=== PATIENT | female | born 1940 | race Caucasian/White ===

== ENCOUNTER 2017-05-07 12:21 | Observation (INO) ==
[2017-05-07] MEDS ORDERED: 0.9 % Sodium Chloride 1,000 ML IVC ONE (12:44)
[2017-05-07 13:12] LABS: Hematocrit 45.4 % (35.3-44.9); Hemoglobin 14.9 g/dL (11.5-15.4); Immature Granulocytes % 0.2 % (0-4); Mean Corpuscular HGB Conc 32.8 g/dL (31.6-35.5); Mean Corpuscular Hemoglobin 29.2 pg (28.0-33.3); Mean Corpuscular Volume 88.8 fL (83.0-100.0); Mean Platelet Volume 10.5 fL (9.4-12.4); Monocytes % 6.5 %; Platelet Count 219 K/mcL (140-400); Red Blood Count 5.11 M/mcL (3.82-4.97); Red Cell Distribution Width 12.5 % (11.5-14.5); Segmented Neutrophils % 71.9 %
[2017-05-07 13:13] LABS: Basophils # 0.1 K/mcL (0.0-0.2); Basophils % 0.8 %; Eosinophils # 0.1 K/mcL (0.0-0.6); Eosinophils % 1.6 %; Lymphocytes # 1.7 K/mcL (0.6-4.6); Monocytes # 0.6 K/mcL (0.0-1.3); Neutrophils # 6.3 K/mcL (1.6-8.9)
[2017-05-07 13:18] LABS: INR 1.2; Prothrombin Time 12.5 Seconds (9.4-12.1)
[2017-05-07 13:21] LABS: Activated Partial Thrombo Time 29.5 Seconds (26.0-36.0)
--- NOTE | 2017-05-07 13:25 | Emergency Department Note ---
Disposition Clinical Impression: Closed head injury Qualifiers: Encounter type: initial encounter Qualified Code(s): S09.90XA - Unspecified injury of head, initial encounter Syncope Qualifiers: Syncope type: unspecified Qualified Code(s): R55 - Syncope and collapse Disposition: Admitted As Inpatient Condition: Good Forms: ED Satisfaction Letter Time of Disposition: 14:49 General Adult HPI - General Chief complaint: ED Fall Stated complaint: Fall/ head lac Time Seen by Provider: 05/07/17 12:33 Source: patient Mode of arrival: ambulatory Limitations: no limitations Nursing Notes Reviewed: Yes Vital Signs Reviewed: Yes - History of Present Illness HPI Narrative: Patient presents emergency room the family had a mechanical fall. Patient got up out of bed and was putting her down. She remembers everything up to put in a gown on and then remembers falling sideways hitting does not remember any other events. She should have orthostatic hypotension but usually has prodromal symptoms. Currently denying chest pain shortness of breath headache vision changes nausea vomiting or diarrhea prior to event. Denies any palpitation other symptoms. She is concerned because the head and anesthetic in the emergency room for evaluation. 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 Radiation: non-radiation Pain Scale: 0 Improves with: nothing Worsens with: nothing Associated symptoms: Reports: denies other symptoms Treatments Prior to Arrival: none - Related Data Home Medications Medication Instructions Recorded Confirmed Metoprolol XL (24 HR) Succ [Toprol 25 mg PO QAM 12/25/15 02/01/16 Xl] Omeprazole [PriLOSEC] 20 mg PO QAM 12/25/15 02/01/16 Pregabalin [Lyrica] 100 mg PO BID 12/25/15 02/01/16 Simvastatin [Zocor] 40 mg PO QPM 12/25/15 02/01/16 Venlafaxine [Effexor] 75 mg PO BID 12/25/15 02/01/16 Meclizine [Antivert] 25 mg PO TID PRN 02/01/16 02/01/16 Previous Rx's Medication Instructions Recorded Aspirin 81 mg PO DAILY #30 tab.chew 12/28/15 Ondansetron [Zofran] 8 mg PO Q8HR PRN #30 tablet 12/28/15 Cefuroxime Axetil [Ceftin] 500 mg PO 1-2XD #14 tablet 02/03/16 Allergies Allergy/AdvReac Type Severity Reaction Status Date / Time acetaminophen [From Vicodin] Allergy Nausea Verified 05/07/17 12:25 hydrocodone [From Vicodin] Allergy Nausea Verified 05/07/17 12:25 nitroglycerin Allergy See Verified 05/07/17 12:25 Comments All systems ED: reviewed and negative except as stated. Review of Systems: As Per HPI Constitutional: Denies: fever, chills, weakness Eyes: Denies: eye discharge, vision change ENT ED: Denies: throat pain, congestion Cardiovascular: Reports: syncope. Denies: chest pain, palpitations, dyspnea on exertion, orthopnea, edema Respiratory: Denies: cough, dyspnea, wheezes, sputum production Gastrointestinal: Denies: nausea, vomiting, diarrhea Genitourinary: Denies: urgency, dysuria, frequency Musculoskeletal: Denies: back pain, neck pain Neurological: Denies: headache Past Medical History - Past Medical History Attestation: Yes The following information was validated with the patient. 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 Absent: miosis, mydriasis, periorbital swelling, periorbital tenderness - ENT ENT exam: normal exam, normal oropharynx, mucous membranes moist - Neck Neck exam: Present: normal inspection, full ROM, trachea midline - Chest Chest inspection: Present: normal inspection, symmetric chest wall rise - Respiratory Respiratory exam: Present: normal lung sounds bilaterally - Cardiovascular Cardiovascular exam: Present: regular rate, normal rhythm, normal heart sounds - Abdominal Exam Abdominal exam: Present: soft, Non-Tender, normal bowel sounds. Absent: tenderness, distention, guarding, rebound, rigidity, Cody's sign, Rovsing's sign, tenderness at McBurney's Point - Extremities Exam Extremities exam: Present: normal inspection, full ROM, normal capillary refill. Absent: tenderness - Back Exam Back exam: Present: normal inspection, full ROM. Absent: tenderness, muscle spasm, paraspinal tenderness, vertebral tenderness - Neurological Exam Neurological exam: Present: alert, oriented X3, CN II-XII intact, normal gait - Psychiatric Psychiatric exam: Present: normal affect, normal mood - Skin Skin exam: Present: warm, dry, intact, normal color Course Course Narrative: Patient seen and examined at the time of arrival. See history of present illness. 76-year-old female presents emergency room with what is described as a syncopal event at home. Patient has orthostatic issues and has been seen and worked up and evaluated for this multiple times in the past. Patient's family is concerned because she was born in hitting the right side of her head. Additionally takes an aspirin daily at this time. On my physical exam this is a well-appearing female speaking in full sentences answer questions appropriate showing no acute neurologic deficits or issues. Evaluation of her head she does have what appears to be a 4 cm x 4 cm hematoma to the right lateral aspect of the frontal bone. There is a red linear area in the middle of it where she hit against the shelf on the cabinet. No active signs of laceration or bleeding at this point. No depressed skull fracture noted. No signs of trauma to the facial bones at this point. Patient has no midline tenderness of cervical thoracic or lumbar spine. Chest full range of motion of the neck without any difficulty. Lungs are clear heart is regular abdomen is soft nontender nondistended. Concern is noted for syncopal event because the patient has difficulty with remembering the actual timeframe where she fell. Patient remembers standing up not having any prodromal symptoms that she typically does with her orthostasis and then remembers falling sideways in hitting her head off the shelf. Diaphragm in between that is completely amnestic to her at this point. Vital signs are reviewed and otherwise unremarkable this time. CT imaging of the head CT cervical spine will be completed. Chest x-ray EKG and lab screening for syncopal event will also be recorded resulted. Fluid hydration nausea medication be given as needed. Disposition will most likely admission for syncopal event secondary to the presentation issue. Family and patient will probably accountable this plan. See detailed documentation of my exam. - Reevaluation(s) Reevaluation #1: EKG shows sinus rhythm and no acute signs of ST segment elevation or conduction related abnormality. CT that is negative cervical spine is negative chest x- ray is normal. Labs are all unremarkable. Urinalysis is still pending. Syncopal event will be discussed and reviewed and discuss admission process. Time: 14:02 Reevaluation #2: Patient was discussed with the hospitalist Dr. Merrill. We reviewed the presentation symptoms and concern for syncopal event. Patient will be admitted this time for further evaluation and management. No other concerns or issues. Laboratory workup imaging modalities are unremarkable this point. Patient family informed of the plan and they are comfortable with her disposition at this time. Time: 14:49 Vital Signs Temperature 97.7 F 05/07/17 12:22 Pulse Rate 97 05/07/17 12:22 Respiratory Rate 18 05/07/17 12:22 Blood Pressure 152/95 05/07/17 12:22 O2 Sat by Pulse Oximetry 97 05/07/17 12:22 Temperature 97.7 F 05/07/17 12:22 Pulse Rate 80 05/07/17 13:56 Respiratory Rate 18 05/07/17 13:56 Blood Pressure 135/90 05/07/17 13:56 O2 Sat by Pulse Oximetry 94 05/07/17 13:56 Oxygen Delivery Oxygen Delivery Nasal Cannula Medical Decision Making - MDM Narrative Medical decision making narrative: fAll, syncopal event - Medical Records Medical records reviewed: Yes I reviewed the patient's medical records. - Lab Data Lab results reviewed: Yes I reviewed the patient's lab results. Result diagrams: 05/07/17 13:06 05/07/17 13:06 Lab Results 05/07/17 05/07/17 05/07/17 Range/Units 13:03 13:06 13:06 WBC 8.7 (4.3-11.1) K/mcL RBC 5.11 H (3.82-4.97) M/mcL Hgb 14.9 (11.5-15.4) g/dL Hct 45.4 H (35.3-44.9) % MCV 88.8 (83.0-100.0) fL MCH 29.2 (28.0-33.3) pg MCHC 32.8 (31.6-35.5) g/dL RDW 12.5 (11.5-14.5) % Plt Count 219 (140-400) K/mcL MPV 10.5 (9.4-12.4) fL Immature Gran % 0.2 (0-4) % Seg Neutrophils % 71.9 % Lymphocytes % 19.0 % Monocytes % 6.5 % Eosinophils % 1.6 % Basophils % 0.8 % Neutrophils # 6.3 (1.6-8.9) K/mcL Lymphocytes # 1.7 (0.6-4.6) K/mcL Monocytes # 0.6 (0.0-1.3) K/mcL Eosinophils # 0.1 (0.0-0.6) K/mcL Basophils # 0.1 (0.0-0.2) K/mcL PT 12.5 H (9.4-12.1) Seconds INR 1.2 APTT 29.5 (26.0-36.0) Seconds Sodium (136-145) mEq/L Potassium (3.5-5.1) mEq/L Chloride (98-107) mEq/L Carbon Dioxide (23-29) mEq/L BUN (8-23) mg/dL Creatinine (0.60-1.20) mg/dL Est GFR ( Amer) (> 60) Est GFR (Non-Af Amer) (> 60) BUN/Creatinine Ratio (6-26) Glucose (70-105) mg/dL POC Glucose 110 H (58-89) Calculated Osmolality (280-300) Calcium (8.6-10.3) mg/dL Troponin I (< 0.04) ng/mL Urine Color (Yellow) Urine Clarity (Clear) Urine pH (5.0-8.0) pH Units Ur Specific [place] (1.010-1.025) Urine Protein (Neg-Trace) mg/dL Urine Glucose (UA) (Normal) mg/dL Urine Ketones (Negative) mg/dL Urine Blood (Negative) Urine Nitrite (Negative) Urine Bilirubin (Negative) Urine Urobilinogen (Normal) mg/dL Ur Leukocyte Esterase (Negative) Urine Microscopic RBC (0-3) per hpf Urine Microscopic WBC (0-3) per hpf Ur Squamous Epith Cells (None-Few) per lpf Urine Bacteria (None-Few) per hpf Hyaline Casts (None-Few) per lpf 05/07/17 05/07/17 05/07/17 Range/Units 13:06 13:06 14:11 WBC (4.3-11.1) K/mcL RBC (3.82-4.97) M/mcL Hgb (11.5-15.4) g/dL Hct (35.3-44.9) % MCV (83.0-100.0) fL MCH (28.0-33.3) pg MCHC (31.6-35.5) g/dL RDW (11.5-14.5) % Plt Count (140-400) K/mcL MPV (9.4-12.4) fL Immature Gran % (0-4) % Seg Neutrophils % % Lymphocytes % % Monocytes % % Eosinophils % % Basophils % % Neutrophils # (1.6-8.9) K/mcL Lymphocytes # (0.6-4.6) K/mcL Monocytes # (0.0-1.3) K/mcL Eosinophils # (0.0-0.6) K/mcL Basophils # (0.0-0.2) K/mcL PT (9.4-12.1) Seconds INR APTT (26.0-36.0) Seconds Sodium 136 (136-145) mEq/L Potassium 4.0 (3.5-5.1) mEq/L Chloride 105 (98-107) mEq/L Carbon Dioxide 23 (23-29) mEq/L BUN 20 (8-23) mg/dL Creatinine 0.92 (0.60-1.20) mg/dL Est GFR ( Amer) > 60 (> 60) Est GFR (Non-Af Amer) 59 L (> 60) BUN/Creatinine Ratio 22 (6-26) Glucose 111 H (70-105) mg/dL POC Glucose (58-89) Calculated Osmolality 285 (280-300) Calcium 9.0 (8.6-10.3) mg/dL Troponin I < 0.03 (< 0.04) ng/mL Urine Color Yellow (Yellow) Urine Clarity Cloudy A (Clear) Urine pH 8.0 (5.0-8.0) pH Units Ur Specific [place] 1.019 (1.010-1.025) Urine Protein Negative (Neg-Trace) mg/dL Urine Glucose (UA) Normal (Normal) mg/dL Urine Ketones Negative (Negative) mg/dL Urine Blood Negative (Negative) Urine Nitrite Negative (Negative) Urine Bilirubin Negative (Negative) Urine Urobilinogen Normal (Normal) mg/dL Ur Leukocyte Esterase Small H (Negative) Urine Microscopic RBC 3-5 H (0-3) per hpf Urine Microscopic WBC 5-15 H (0-3) per hpf Ur Squamous Epith Cells Many H (None-Few) per lpf Urine Bacteria None Seen (None-Few) per hpf Hyaline Casts None Seen (None-Few) per lpf - Radiology Data Radiology results reviewed: Yes I reviewed the patient's radiology results. - EKG Data EKG #1 EKG attestation: Yes I reviewed and interpreted this EKG. EKG results narrative: EKG shows sinus rhythm. Ventricular rate of 98. VT interval 180. QRS duration of 77. QTC of 381. Intervals are within normal limits. [place] is normal. No acute signs of WPW, Sandhya syndrome, and no abnormalities. No acute signs of ST segment elevation or myocardial infarction. Slight variation in lead 3 with T-wave inversions patient is denying chest pain
[2017-05-07 13:26] LABS: BUN/Creatinine Ratio 22 (6-26); Blood Urea Nitrogen 20 mg/dL (8-23); Carbon Dioxide 23 mEq/L (23-29); Chloride 105 mEq/L (98-107); Glucose 111 mg/dL (70-105); Osmolality,Calculated 285 (280-300); Sodium 136 mEq/L (136-145); eGFR For African Americans > 60 (> 60); eGFR For Non-African Americans 59 (> 60)
[2017-05-07 14:29] LABS: Bilirubin,Urine Negative (Negative); Blood,Urine Negative (Negative); Clarity,Urine Cloudy (Clear); Color,Urine Yellow (Yellow); Glucose,Urine (UA) Normal (Normal); Ketones,Urine Negative (Negative); Leukocyte Esterase,Urine Small (Negative); Nitrite,Urine Negative (Negative); Protein,Urine Negative (Neg-Trace); Specific Gravity,Urine 1.019 (1.010-1.025); Urobilinogen,Urine Normal (Normal)
[2017-05-07 14:32] LABS: Bacteria,Urine None Seen per hpf (None-Few); Hyaline Casts,Urine None Seen per lpf (None-Few); Squamous Epithelial Cell,Urine Many per lpf (None-Few)
[2017-05-07] MEDS ORDERED: Ondansetron 4 MG/2 ML VIAL IVP PRN (16:02)
[2017-05-07] MEDS ORDERED: Acetaminophen 325 MG TABLET PO PRN (16:02)
[2017-05-07] MEDS ORDERED: Naloxone 0.4 MG/ML INJ IVP PRN (16:02)
--- NOTE | 2017-05-07 16:08 | Event Note ---
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 fall likely due to orthostasis. Will check orthostatics, echo, carotid, MRI. Follow up with cardiology as outpatient for tilt-table test. Questionable UTI with pus cells and trace leuk esterase (vs. contaminant). Will keep on ceftriaxone and get urine culture. Observation. Telemetry monitoring
--- NOTE | 2017-05-07 16:19 | Internal Med History&Physical ---
Date of Encounter: 05/07/17 Time of Encounter: 15:30 Assessment and Plan (1) Orthostatic hypotension Current visit: Yes Status: Acute Acute on chronic orthostatic hypotension. Pt. reports falling this morning when dressing w/positional changes. Reports hx of similar. Pt. placed on Antivert for previous occurrences. States she is unsure if she blacked out. Head injury sustained in fall w/laceration. CT of the head/brain today shows right superficial fronto temporal soft tissue swelling suggestive of contusion and hematoma. MRI of the head/brain ordered. Orthostatic BPs and VS ordered. Bilateral carotid Doppler imaging ordered. Echocardiogram ordered. EKG today shows sinus rhythm with nonspecific T-wave abnormality. Continuous cardiac telemetry. Supplemental O2 w/titration and SpO2 monitoring PRN. Falls/safety precautions. Pt. discussed w/Dr. Merrill who is in agreement w/plan of care. Pt. is high risk for further morbidity based on current fall, hx of orthostatic sx, hx, and risk factors. Observation. (2) Fall Current visit: Yes Status: Acute Acute falls this morning while dressing. Pt. reports positional changes but is unsure if she blacked out. Reports hx of similar sx and occurrences. Placed in Antivert. Falls/safety precautions. Up with assist. Bed rest w/bathroom privileges w/assist only. Stair-step pain medication for pain management. Qualifiers: Encounter type: initial encounter Qualified Code(s): W19.XXXA - Unspecified fall, initial encounter (3) Hx: UTI (urinary tract infection) Current visit: Yes Status: Acute Chronic hx of UTI w/possible UTI currently based on initial U/A. Currently asymptomatic. Previous hx of UTI positive for Klebsiella which was sensitive to ceftriaxone. Reflex micro-and culture ordered. IVPB ceftriaxone 1000 mg daily for infection coverage. Will adjust abx coverage based on culture results. Monitor pt. and VS. (4) GERD (gastroesophageal reflux disease) Current visit: Yes Status: Chronic Hx of chronic GERD. IVP Zofran 4 mg Q8 for N/V. Continue pts. Prilosec. Qualifiers: Esophagitis presence: esophagitis presence not specified Qualified Code(s) : K21.9 - Gastro-esophageal reflux disease without esophagitis (5) HLD (hyperlipidemia) Current visit: Yes Status: Chronic Hx of chronic HLD. Lipid panel in a.m. labs. Continue pts. Zocor. Qualifiers: Hyperlipidemia type: pure hypercholesterolemia Qualified Code(s): E78.00 - Pure hypercholesterolemia, unspecified; E78.0 - Pure hypercholesterolemia (6) HTN (hypertension) Current visit: Yes Status: Chronic Hx of chronic HTN. Monitor pt. and VS. Continue pts. Metoprolol. Qualifiers: Hypertension type: essential hypertension Qualified Code(s): I10 - Essential (primary) hypertension (7) Anxiety Current visit: Yes Status: Chronic Hx of chronic anxiety. Continue pts. Effexor. (8) DVT prophylaxis Current visit: Yes Status: Acute Bilateral SCDs on pts. LEs d/t head injury and hematoma on imaging. Monitor pt. for signs of bleeding. Internal Medicine - H&P: HPI Chief complaint: Fall Admitted From: Emergency Dept Plans for Post Hospital Care: Home History of present illness: Ms. Hernandez is a 76 year old female with medical history of fibromyalgia, GERD, HLD, and HTN presents from the ED with chief complaint of fall sustained this morning. Pt. states she was bent over putting on socks and stood up to put housecoat over her head when she fell, striking her head. Cannot recall if she blacked out. Reports hx of similar sx and occurrences. Reports she is always sweaty and that her PCP recently told her she may have atrial fibrillation. Also states she spends a lot of time in bed d/t myalgias. Pt. denies recent illness, fever, chills, nausea, vomiting, chest pain, shortness of breath, cough , headache, changes in vision, numbness, tingling, abdominal pain, diarrhea, constipation, weakness, fatigue, dizziness, or lightheadedness. Past Med Surg Social Fam HX - Past Medical History Source: patient, old records reviewed, obtained from family Medical history: fibromyalgia, GERD, hyperlipidemia, hypertension Psychiatric history: anxiety - Past Surgical History Surgical History: appendectomy, cholecystectomy, hysterectomy (Total ) - Social History Smoking Status: Never smoker Smokeless Tobacco Status: No Alcohol use: none Drug use: none Current living situation: Home, With Family Activity Level: Independent ambulation Recent Out of Country Travel Within the Last 8 Weeks: No Exposure or Possible Exposure to Illness During Travel: No - Family History Mother Race: Family Member Ethnicity: Non- Living Status: Age at : 61 Cause of : OR Hx Family Cardiac Disorders: Yes (OR) Father Race: Family Member Ethnicity: Non- Living Status: Age at : 78 Cause of : OR Hx Family Cardiac Disorders: Yes (OR, Stroke) Hx Family GI Disorders: Yes (Partial removal of stomach) Brother Race: Family Member Ethnicity: Non- Living Status: Age at : 37 Cause of : Neck cancer Hx Family Cancer: Yes (Neck) Internal Medicine - H&P: Meds Metoprolol XL (24 HR) Succ [Toprol Xl] 25 mg PO QAM 12/25/15 [History] Omeprazole [PriLOSEC] 20 mg PO QAM 12/25/15 [History] Pregabalin [Lyrica] 100 mg PO BID 12/25/15 [History] Simvastatin [Zocor] 40 mg PO QPM 12/25/15 [History] Venlafaxine [Effexor] 75 mg PO BID 12/25/15 [History] Ondansetron [Zofran] 8 mg PO Q8HR PRN #30 tablet 12/28/15 [Rx] Meclizine [Antivert] 25 mg PO TID PRN 02/01/16 [History] LORazepam [Ativan] 0.5 mg PO BID PRN 05/07/17 [History] 3 Allergy/AdvReac Type Severity Reaction Status Date / Time acetaminophen [From Vicodin] Allergy Nausea Verified 05/07/17 12:25 hydrocodone [From Vicodin] Allergy Nausea Verified 05/07/17 12:25 nitroglycerin Allergy See Verified 05/07/17 12:25 Comments All Systems PM: A 10-system review of systems was performed and is negative for pertinent findings except as documented above in the HPI. - Constitutional Constitutional: as per HPI, falls, no chills, no fever(s), no night sweats - EENT Eyes: no change in vision, no discharge, no pain, no photophobia Ears: no ear discharge, no ear pain, no tinnitus Nose, mouth and throat: no dysphagia, no nasal discharge, no neck pain, no sore throat - Breasts Breasts: as per HPI - Cardiovascular Cardiovascular ROS IM: as per HPI, diaphoresis, no chest pain, no dyspnea, no lightheadedness, no palpitations, no syncope - Respiratory Respiratory: no cough, no dyspnea, no wheezing, no excessive phlegm production - Gastrointestinal Gastrointestinal: no abdominal pain, no diarrhea, no hematemesis, no hematochezia, no melena, no nausea, no vomiting - Genitourinary Genitourinary: no change in urinary stream, no dysuria, no flank pain, no hematuria Menstruation: as per HPI, post hysterectomy - Musculoskeletal Musculoskeletal ROS IM: as per HPI, back pain, myalgias, no numbness, no tingling - Integumentary Integumentary IM: no rash, no unusual bruising - Neurological Neurological ROS: no confusion, no convulsions, no focal weakness, no numbness, no tingling, no tremor(s) - Psychiatric Psychiatric: as per HPI - Endocrine Endocrine IM: as per HPI - Hematologic/Lymphatic Hematologic/Lymphatic: no easy bruising - Allergic/Immunologic Allergic/Immunologic: as per HPI - Constitutional Vitals: Temp Pulse Resp BP Pulse Ox 97.7 F 78 13 139/83 94 05/07/17 12:22 05/07/17 14:53 05/07/17 14:53 05/07/17 14:53 05/07/17 14:53 General appearance: Present: cooperative, A&O X 3, pleasant, no acute distress, answers questions appropriately - Head Head exam: Present: normocephalic Additional comments: Patient has laceration on left side of head above christianity where she struck her head this morning. - Eye Eye exam: Present: PERRL, conjuntiva pink, sclera anicteric Pupils: Present: PERRL - ENT ENT exam: Present: normal exam - Neck Neck exam general surgery: Present: normal inspection, supple, trachea midline. Absent: lymphadenopathy - Respiratory Respiratory exam: Present: CTAB. Absent: accessory muscle use, rales, rhonchi, wheezes - Cardiovascular Cardiovascular exam: Present: RRR, +S1, +S2. Absent: diastolic murmur, gallop, rubs, systolic murmur - GI/Abdominal GI/Abdominal exam: Present: normal bowel sounds, soft, no peritoneal signs. Absent: distended, tenderness - Rectal Rectal exam: Present: deferred - Additional comments: exam deferred. - Extremities Exam Extremities exam: Present: warm, radial pulses palpable and symmetrical. Absent : calf tenderness, cyanotic, pedal edema - Back Exam Back exam: Present: normal inspection - Neurological Exam Neurological exam: Present: CN II-XII intact, oriented X3, no focal deficits. Absent: pronater drift, facial droop, speech deficit - Psychiatric Psychiatric exam: Present: normal affect, normal mood - Skin Skin exam: Present: dry, intact Internal Med - H&P Results - Labs CBC & Chem 7: 05/07/17 13:06 05/07/17 13:06 - EKG Data EKG shows normal: sinus rhythm - EKG Data Prior EKG available for review: yes EKG comments: 05/07/17 16:29 EKG dated 05/11/16 shows sinus rhythm. EKG dated 05/07/17 shows sinus rhythm with nonspecific T-wave abnormality. - Diagnostic Studies Chest x-ray Additional comments: Impressions Chest X-Ray 05/07/17 12:44 IMPRESSION: No active cardiopulmonary disease D/ / Timothy Ross MD / Timothy Ross MD Interpreting Provider: Timothy Ross MD CT scan - head Additional comments: Impressions Head CT 05/07/17 12:45 IMPRESSION: No acute intracranial abnormality. Right superficial frontotemporal soft tissue swelling suggestive of contusion and hematoma. D/ / Tulio Willoughby MD / Tulio Willoughby MD Interpreting Provider: Tulio Willoughby MD Other Images Additional comments: Impressions Cervical Spine CT 05/07/17 13:28 IMPRESSION: No acute abnormality of the cervical spine. D/ / Tulio Willoughby MD / Tulio Willoughby MD Interpreting Provider: Tulio Willoughby MD
[2017-05-07] MEDS: cefTRIAXone 1,000 MG in Water for inj. (sterile) 20 ML 10 ML IVPB SCH (16:37)
[2017-05-07] MEDS: Pregabalin 50 MG CAPSULE PO SCH (20:15)
[2017-05-08 04:48] LABS: Basophils # 0.1 K/mcL (0.0-0.2); Basophils % 0.8 %; Eosinophils # 0.2 K/mcL (0.0-0.6); Hematocrit 38.2 % (35.3-44.9); Immature Granulocytes % 0.4 % (0-4); Lymphocytes # 1.7 K/mcL (0.6-4.6); Lymphocytes % 23.3 %; Mean Corpuscular HGB Conc 33.5 g/dL (31.6-35.5); Mean Corpuscular Hemoglobin 29.8 pg (28.0-33.3); Mean Corpuscular Volume 88.8 fL (83.0-100.0); Monocytes # 0.6 K/mcL (0.0-1.3); Monocytes % 7.8 %; Neutrophils # 4.8 K/mcL (1.6-8.9); Platelet Count 180 K/mcL (140-400); Red Cell Distribution Width 12.7 % (11.5-14.5); Segmented Neutrophils % 64.7 %
[2017-05-08 04:56] LABS: Hemoglobin 12.8 g/dL (11.5-15.4)
[2017-05-08 05:11] LABS: Alanine Aminotransferase 17 Units/L (7-52); Albumin 3.5 g/dL (3.5-5.7); Albumin/Globulin Ratio 1.3 (1.1-2.2); Alkaline Phosphatase 65 Units/L (34-104); Aspartate Amino Transferase 19 Units/L (13-39); BUN/Creatinine Ratio 16 (6-26); Bilirubin,Total 0.7 mg/dL (0.3-1.0); Blood Urea Nitrogen 14 mg/dL (8-23); Calcium 8.6 mg/dL (8.6-10.3); Carbon Dioxide 25 mEq/L (23-29); Chloride 105 mEq/L (98-107); Chol/HDL Ratio 4.5 (0-4.9); Cholesterol 144 mg/dL (< 200); Globulin 2.8 g/dL (2.4-3.5); Glucose 92 mg/dL (70-105); HDL Cholesterol 32 mg/dL (40-59); LDL Cholesterol,Calculated 81 mg/dL (0-99); Magnesium 2.2 mg/dL (1.6-2.6); Osmolality,Calculated 282 (280-300); Potassium 3.9 mEq/L (3.5-5.1); Sodium 136 mEq/L (136-145); Total Protein 6.3 g/dL (6.4-8.9); Triglycerides 156 mg/dL (< 150); eGFR For African Americans > 60 (> 60); eGFR For Non-African Americans > 60 (> 60)
[2017-05-08] MEDS: *HR* LORazepam 0.5 MG TABLET PO PRN ×3 (07:32→21:43)
[2017-05-08] MEDS: cefTRIAXone 1,000 MG in Water for inj. (sterile) 20 ML 10 ML IVPB SCH (09:59)
[2017-05-08] MEDS: Pregabalin 50 MG CAPSULE PO SCH ×2 (10:00→21:43)
[2017-05-08] MEDS: Metoprolol XL (24 HR) Succ 25 MG TAB.ER.24H PO SCH (10:05)
--- NOTE | 2017-05-08 16:24 | Discharge Summary ---
Date of Encounter: 05/08/17 Time of Encounter: 10:15 - Discharge Diagnosis (1) Orthostatic hypotension Priority: Primary Status: Acute Comments: Acute on chronic orthostatic hypotension. Pt. reports falling this morning when dressing w/positional changes. Reports hx of similar. Pt. placed on Antivert for previous occurrences. States she is unsure if she blacked out. Head injury sustained in fall w/laceration. CT of the head/brain today shows right superficial fronto temporal soft tissue swelling suggestive of contusion and hematoma. MRI brain without evidence of acute hemorrhage, mass or lesion. Orthostatic BPs positive in the ED, repeat set negative prior to discharge. Bilateral carotid Doppler with non-stenotic plaque bilaterally. Echocardiogram showed LVEF of 60-65% with mild LVEDD, mild TR. EKG today shows sinus rhythm with nonspecific T-wave abnormality. Pt will wear Holter monitor for 48 hours, to be placed prior to discharge. Increase fluid intake, WALTER hose, continue Antivert. Wound recheck at PCP in 3-4 days. (2) DVT prophylaxis Priority: Secondary Status: Acute Comments: Patient was ambulatory. SCD (3) HTN (hypertension) Priority: Secondary Status: Chronic Comments: Vital signs stable during admission. Continue home medications. Qualifiers: Hypertension type: essential hypertension Qualified Code(s): I10 - Essential (primary) hypertension (4) HLD (hyperlipidemia) Priority: Secondary Status: Chronic Comments: Chronic. Continue home medications. Qualifiers: Hyperlipidemia type: pure hypercholesterolemia Qualified Code(s): E78.00 - Pure hypercholesterolemia, unspecified; E78.0 - Pure hypercholesterolemia (5) GERD (gastroesophageal reflux disease) Priority: Secondary Status: Chronic Comments: Chronic. Continue Prilosec Qualifiers: Esophagitis presence: esophagitis presence not specified Qualified Code(s) : K21.9 - Gastro-esophageal reflux disease without esophagitis (6) Anxiety Priority: Secondary Status: Chronic Comments: Chronic. The patient has when necessary Ativan. Continue at home with caution. (7) Fall Priority: Secondary Status: Acute Comments: Patient fell this morning. She reports chronic dizziness with position changes , has been seen before takes Antivert. Patient with laceration and hematoma, unsure of loss of consciousness. Continue to monitor at home for safety. PT/OT evaluations pending Holter monitor ordered to assess for possible dysrhythmias that could cause syncope. Qualifiers: Encounter type: initial encounter Qualified Code(s): W19.XXXA - Unspecified fall, initial encounter (8) Hx: UTI (urinary tract infection) Priority: Secondary Status: Acute Comments: Patient was initially treated for urinary tract infection with Rocephin 1 g IV daily. Recent UTI positive for Klebsiella. Patient is asymptomatic. Urine culture is negative. Rocephin has been stopped. - Discharge Medications Home Medications: Metoprolol XL (24 HR) Succ [Toprol Xl] 25 mg PO QAM 12/25/15 [History] Omeprazole [PriLOSEC] 20 mg PO QAM 12/25/15 [History] Pregabalin [Lyrica] 100 mg PO BID 12/25/15 [History] Simvastatin [Zocor] 40 mg PO QPM 12/25/15 [History] Venlafaxine [Effexor] 75 mg PO BID 12/25/15 [History] Ondansetron [Zofran] 8 mg PO Q8HR PRN #30 tablet 12/28/15 [Rx] Meclizine [Antivert] 25 mg PO TID PRN 02/01/16 [History] LORazepam [Ativan] 0.5 mg PO BID PRN 05/07/17 [History] Allergies/Adverse Reactions: 3 Allergy/AdvReac Type Severity Reaction Status Date / Time acetaminophen [From Vicodin] Allergy Nausea Verified 05/07/17 12:25 hydrocodone [From Vicodin] Allergy Nausea Verified 05/07/17 12:25 nitroglycerin Allergy See Verified 05/07/17 12:25 Comments Procedures/tests Complete & Pending: Procedures Performed prior 72 hours Category Date Time Status MR head/brain wo con [MR] Routine MRI 05/08/17 16:08 Completed EV carotid duplex imaging BI Routine Y 05/08/17 09:30 Completed EV echocardiogram Routine Y 05/08/17 09:30 Completed Date of admission: 05/07/17 14:53 Primary care physician: Jaime Lynne, Consults: 05/07/17 16:04 Consult to Template Fitter [CONS] Routine Reason for SW Consult: Please assess patient for possible home needs for post -discharge planning. 05/07/17 16:05 Consult to Occupational Therapy [CONS] Routine Comment: Evaluate, develop and implement POC Reason for Consult: Patient had mechanical fall today resulting in her striking head. Please assess patient for ambulation strength, stability, safety, and possible home assistive needs for post-discharge planning. 05/07/17 16:06 Consult to Physical Therapy [CONS] Routine Comment: Evaluate, develop and implement POC Reason for Consult: Patient had mechanical fall today resulting in her striking head. Please assess patient for ambulation strength, stability, safety, and possible home assistive needs for post-discharge planning. Discharging clinician: Juanita Oneil Anticipated date of discharge: 05/08/17 - Patient Status Disposition: Home, Self-Care Condition: Good Functional capacity at discharge: uses cane/walker Overall status at discharge: patient is back to baseline - Ambulatory Orders Ambulatory Orders: ECG holter monitor [ECG] Time Frame: 2 Days, Facility: [facility], Location: Cardiopulmonary Svc - Discharge Instructions Follow Up With: Jaime Lynne DO [Primary Care Provider] - Additional Instructions: Please follow up with your PCP in the next 7-10 days for a follow up visit. Holter monitor for 48 hours after discharge. Return to the ER as needed for any other problems or concerns or if your symptoms return. Take your medication as directed. REturn to your diet and activities as tolerated. - Diet and Activity Activity: increase activity as tolerated Diet: advance to your usual diet Hospital course: Ms. Hernandez is a 76 year old female with past medical history of presyncope, GERD , fibromyalgia, hypertension, hyperlipidemia, anxiety. Patient reports possible syncopal episode, fall prior to arrival getting dressed. ct head is negative brain mri is negative. all other testing is within normal limits. patient has history of same and has been taking antivert. initial set of orthostatic vital signs are positive in the emergency department. after treatment today, orthostatic vital signs are negative. patient was initially treated for urinary tract infection, however urine culture shows no growth and antibiotic stopped. she is asymptomatic. vital signs and labs are stable and within normal limits. patient will be given a holter monitor to wear for 48 hours, to be placed prior to discharge. Pt is stable and ready for discharge. - Time Spent with Patient Total time spent providing and/or coordinating discharge services: Less than 30 minutes - Constitutional Vitals: Temp Pulse Resp BP Pulse Ox 98.4 F 89 16 121/78 92 05/08/17 15:35 05/08/17 15:35 05/08/17 15:35 05/08/17 15:44 05/08/17 15:35 General appearance: Present: cooperative, A&O X 3, pleasant, no acute distress, answers questions appropriately - Head Head exam: Present: atraumatic, normal inspection, normocephalic - Eye Eye exam: Present: normal appearance, conjuntiva pink, sclera anicteric - Neck Neck exam general surgery: Present: supple, trachea midline. Absent: lymphadenopathy, tenderness - Respiratory Respiratory exam: Present: CTAB. Absent: accessory muscle use, rales, respiratory distress, rhonchi, wheezes - Cardiovascular Cardiovascular exam: Present: RRR, +S1, +S2. Absent: diastolic murmur, gallop, rubs, systolic murmur - GI/Abdominal GI/Abdominal exam: Present: normal bowel sounds, soft. Absent: distended, hepatomegaly, tenderness - Extremities Exam Extremities exam: Present: normal capillary refill, warm, radial pulses palpable and symmetrical. Absent: calf tenderness, cyanotic, pedal edema, tenderness - Neurological Exam Neurological exam: Present: alert, oriented X3, no focal deficits. Absent: facial droop, speech deficit - Skin Skin exam: Present: dry, intact, normal color, warm. Absent: rash
[2017-05-09 06:33] LABS: Basophils # 0.1 K/mcL (0.0-0.2); Eosinophils # 0.4 K/mcL (0.0-0.6); Eosinophils % 5.1 %; Hematocrit 39.6 % (35.3-44.9); Immature Granulocytes % 0.3 % (0-4); Lymphocytes # 2.3 K/mcL (0.6-4.6); Mean Corpuscular HGB Conc 32.8 g/dL (31.6-35.5); Mean Corpuscular Hemoglobin 29.2 pg (28.0-33.3); Mean Platelet Volume 10.8 fL (9.4-12.4); Monocytes # 0.6 K/mcL (0.0-1.3); Monocytes % 8.1 %; Neutrophils # 3.5 K/mcL (1.6-8.9); Platelet Count 196 K/mcL (140-400); Red Blood Count 4.45 M/mcL (3.82-4.97); Red Cell Distribution Width 12.5 % (11.5-14.5); Segmented Neutrophils % 51.5 %
[2017-05-09 06:51] LABS: Alanine Aminotransferase 14 Units/L (7-52); Albumin 3.6 g/dL (3.5-5.7); Albumin/Globulin Ratio 1.2 (1.1-2.2); Alkaline Phosphatase 62 Units/L (34-104); Aspartate Amino Transferase 17 Units/L (13-39); BUN/Creatinine Ratio 16 (6-26); Bilirubin,Total 0.6 mg/dL (0.3-1.0); Blood Urea Nitrogen 14 mg/dL (8-23); Calcium 8.8 mg/dL (8.6-10.3); Carbon Dioxide 26 mEq/L (23-29); Chloride 105 mEq/L (98-107); Globulin 2.9 g/dL (2.4-3.5); Glucose 91 mg/dL (70-105); Osmolality,Calculated 282 (280-300); Potassium 4.2 mEq/L (3.5-5.1); Sodium 136 mEq/L (136-145); Total Protein 6.5 g/dL (6.4-8.9); eGFR For African Americans > 60 (> 60); eGFR For Non-African Americans > 60 (> 60)
[2017-05-09] MEDS: Pregabalin 50 MG CAPSULE PO SCH (09:23)
[2017-05-09] MEDS: Metoprolol XL (24 HR) Succ 25 MG TAB.ER.24H PO SCH (09:24)
[2017-05-09 12:08] VITALS: BP 121/71
--- NOTE | 2017-05-10 07:54 | Electrocardiograph Report ---
[place] [id number] Test Date: 2017-05-07 Pat Name: Sera Hernandez Department: 104 Room: 3B Gender: F Foreclosure Clerk: REANNA : 1940 Requested By: Acosta Rasheed Order Number: [id number] Reading MD: Waldo Riddle MD Measurements Intervals [place] Rate: 97 P: 6 CO: 180 QRS: 1 QRSD: 77 T: 5 QT: 326 QTc: 381 Interpretive Statements SINUS RHYTHM BASELINE ARTIFACT Electronically Signed On 05-10-2017 6:31:34 EST by Waldo Riddle MD
--- NOTE | 2017-06-07 08:01 | Event Note ---
Date of Encounter: 05/09/17 Time of Encounter: 08:00 Patient was discharged 05/08/2017 and left on 04/08/2018 before she was seen or examined
== END 2017-05-09 14:52 | disposition home or self-care (01) ==
LOC: 2SOUTHHOLD 12:21 → EMEROO 12:21 → 2SOUTHHOLD 15:22 → 3BNU 18:50
PROVIDERS: ADMIT Hospitalist; ATTEND Registered Nurse

== ENCOUNTER 2017-12-08 21:05 | Observation (INO) ==
--- NOTE | 2017-12-08 21:10 | Emergency Department Note ---
Disposition Clinical Impression: Nausea & vomiting Disposition: Admitted As Inpatient Condition: Undetermined General Adult HPI - General Stated complaint: Nausea Vomiting Time Seen by Provider: 12/08/17 21:08 - Related Data Home Medications Medication Instructions Recorded Confirmed Metoprolol XL (24 HR) Succ [Toprol 25 mg PO QAM 12/25/15 12/09/17 Xl] Omeprazole [PriLOSEC] 20 mg PO QAM 12/25/15 12/09/17 Pregabalin [Lyrica] 100 mg PO BID 12/25/15 12/09/17 Simvastatin [Zocor] 40 mg PO QPM 12/25/15 12/09/17 Venlafaxine [Effexor] 75 mg PO BID 12/25/15 12/09/17 LORazepam [Ativan] 0.5 mg PO BID PRN 05/07/17 12/09/17 Previous Rx's Medication Instructions Recorded Ondansetron [Zofran] 8 mg PO Q8HR PRN #30 tablet 12/28/15 Allergies Allergy/AdvReac Type Severity Reaction Status Date / Time acetaminophen [From Vicodin] Allergy Nausea Verified 05/07/17 12:25 hydrocodone [From Vicodin] Allergy Nausea Verified 05/07/17 12:25 Oxycodone [From Percocet] Allergy Hives Verified 06/23/17 10:26 gabapentin [From Neurontin] AdvReac Confusion Verified 06/23/17 10:26 nitroglycerin AdvReac See Verified 06/23/17 10:25 Comments propoxyphene AdvReac Confusion Verified 06/23/17 10:26 [From Darvocet-N] Past Medical History - Past Medical History Medical history: Reports: arthritis, coronary artery disease, fibromyalgia, GERD , hyperlipidemia, hypertension Surgical history: Reports: appendectomy, cholecystectomy, hysterectomy Psychiatric history: Reports: anxiety, depression RANGE ECOLOGIST history: Reports: no RANGE ECOLOGIST history - Social History Smoking Status: Never smoker Smokeless Tobacco Status: No Alcohol use: Reports: none Drug use: Reports: none Course Vital Signs Temperature 97.6 F 12/08/17 21:10 Pulse Rate 93 12/08/17 21:10 Respiratory Rate 17 12/08/17 21:10 Blood Pressure 128/99 12/08/17 21:10 O2 Sat by Pulse Oximetry 95 12/08/17 21:10 Temperature 98.8 F 12/09/17 03:12 Pulse Rate 97 12/09/17 03:12 Respiratory Rate 16 12/09/17 03:12 Blood Pressure 151/95 12/09/17 03:12 O2 Sat by Pulse Oximetry 95 12/09/17 03:12 Oxygen Delivery Oxygen Delivery Room Air Medical Decision Making - Lab Data Result diagrams: 12/08/17 22:34 12/08/17 22:34 Lab Results 12/08/17 12/08/17 12/08/17 Range/Units 21:22 21:22 22:34 WBC 8.6 (4.3-11.1) K/mcL RBC 4.97 (3.82-4.97) M/mcL Hgb 14.2 (11.5-15.4) g/dL Hct 42.0 (35.3-44.9) % MCV 84.5 (83.0-100.0) fL MCH 28.6 (28.0-33.3) pg MCHC 33.8 (31.6-35.5) g/dL RDW 13.3 (11.5-14.5) % Plt Count 254 (140-400) K/mcL MPV 10.1 (9.4-12.4) fL Immature Gran % 0.1 (0-4) % Seg Neutrophils % 79.3 % Lymphocytes % 16.7 % Monocytes % 3.0 % Eosinophils % 0.2 % Basophils % 0.7 % Neutrophils # 6.8 (1.6-8.9) K/mcL Lymphocytes # 1.4 (0.6-4.6) K/mcL Monocytes # 0.3 (0.0-1.3) K/mcL Eosinophils # 0.0 (0.0-0.6) K/mcL Basophils # 0.1 (0.0-0.2) K/mcL Sodium (136-145) mEq/L Potassium (3.5-5.1) mEq/L Chloride (98-107) mEq/L Carbon Dioxide (23-29) mEq/L BUN (8-23) mg/dL Creatinine (0.60-1.20) mg/dL Est GFR ( Amer) (> 60) Est GFR (Non-Af Amer) (> 60) BUN/Creatinine Ratio (6-26) Glucose (70-105) mg/dL Calculated Osmolality (280-300) Calcium (8.6-10.3) mg/dL Total Bilirubin (0.3-1.0) mg/dL AST (13-39) Units/L ALT (7-52) Units/L Alkaline Phosphatase (34-104) Units/L Serum Total Protein (6.4-8.9) g/dL Albumin (3.5-5.7) g/dL Globulin (2.4-3.5) g/dL Albumin/Globulin Ratio (1.1-2.2) Lipase (11-82) Units/L Specimen Rejected Clotted Hemolyzed 12/08/17 Range/Units 22:34 WBC (4.3-11.1) K/mcL RBC (3.82-4.97) M/mcL Hgb (11.5-15.4) g/dL Hct (35.3-44.9) % MCV (83.0-100.0) fL MCH (28.0-33.3) pg MCHC (31.6-35.5) g/dL RDW (11.5-14.5) % Plt Count (140-400) K/mcL MPV (9.4-12.4) fL Immature Gran % (0-4) % Seg Neutrophils % % Lymphocytes % % Monocytes % % Eosinophils % % Basophils % % Neutrophils # (1.6-8.9) K/mcL Lymphocytes # (0.6-4.6) K/mcL Monocytes # (0.0-1.3) K/mcL Eosinophils # (0.0-0.6) K/mcL Basophils # (0.0-0.2) K/mcL Sodium 134 L (136-145) mEq/L Potassium 3.9 (3.5-5.1) mEq/L Chloride 103 (98-107) mEq/L Carbon Dioxide 21 L (23-29) mEq/L BUN 17 (8-23) mg/dL Creatinine 0.78 (0.60-1.20) mg/dL Est GFR ( Amer) > 60 (> 60) Est GFR (Non-Af Amer) > 60 (> 60) BUN/Creatinine Ratio 22 (6-26) Glucose 148 H (70-105) mg/dL Calculated Osmolality 282 (280-300) Calcium 9.4 (8.6-10.3) mg/dL Total Bilirubin 0.7 (0.3-1.0) mg/dL AST 26 (13-39) Units/L ALT 23 (7-52) Units/L Alkaline Phosphatase 71 (34-104) Units/L Serum Total Protein 7.6 (6.4-8.9) g/dL Albumin 4.2 (3.5-5.7) g/dL Globulin 3.4 (2.4-3.5) g/dL Albumin/Globulin Ratio 1.2 (1.1-2.2) Lipase 20 (11-82) Units/L Specimen Rejected Attestation Statement - Attestation Attestation: I examined this patient and my medical decision-making was reviewed with the Resident Physician. I agree with the documented findings, disposition and treatment plan as described except to the extent set forth below. [id number] time provided Patient arrives by EMS complaining of nausea and vomiting. Prior to that she states she was constipated for several days. She is alert lucid and conversational upon arrival. The patient was evaluated in conjunction with the resident physician
[2017-12-08] MEDS ORDERED: 0.9 % Sodium Chloride 1,000 ML IVC ONE (21:11)
--- NOTE | 2017-12-08 21:16 | Emergency Department Note ---
Disposition Clinical Impression: Nausea & vomiting Qualifiers: Vomiting type: unspecified Vomiting Intractability: intractable Qualified Code( s): R11.2 - Nausea with vomiting, unspecified Disposition: Admitted As Inpatient Condition: Undetermined Referrals: Jaime Lynne DO [Primary Care Provider] - Forms: ED Satisfaction Letter Time of Disposition: 23:53 General Adult HPI - General Chief complaint: ED Nausea/Vomiting/Diarrhea Stated complaint: Nausea Vomiting Time Seen by Provider: 12/08/17 21:08 Source: patient, EMS Mode of arrival: EMS Limitations: no limitations Nursing Notes Reviewed: Yes Vital Signs Reviewed: Yes - History of Present Illness HPI Narrative: 77-year-old female with history of chronic constipation arrives to the emergency department with complaint of constipation over the course the past 3 days. The patient states that she went to a physician and they told her to use magnesium citrate. The patient states she drank roughly half a bottle. The patient states that after that she started experiencing some diarrhea as well as some nausea with a couple episodes of vomiting. She is also complaining of left lower quadrant abdominal discomfort at this time. Patient denies any other complaints at this time. Her nausea was controlled with Zofran in route to the hospital. She is otherwise resting comfortably in the room at this time. Denies any other complaints. She is lucid. She is not tachycardic or hypotensive. Patient is experiencing no acute distress at this time. - Related Data Home Medications Medication Instructions Recorded Confirmed Metoprolol XL (24 HR) Succ [Toprol 25 mg PO QAM 12/25/15 06/23/17 Xl] Omeprazole [PriLOSEC] 20 mg PO QAM 12/25/15 06/23/17 Pregabalin [Lyrica] 100 mg PO BID 12/25/15 06/23/17 Simvastatin [Zocor] 40 mg PO QPM 12/25/15 06/23/17 Venlafaxine [Effexor] 75 mg PO BID 12/25/15 06/23/17 LORazepam [Ativan] 0.5 mg PO BID PRN 05/07/17 06/23/17 Previous Rx's Medication Instructions Recorded Ondansetron [Zofran] 8 mg PO Q8HR PRN #30 tablet 12/28/15 Allergies Allergy/AdvReac Type Severity Reaction Status Date / Time acetaminophen [From Vicodin] Allergy Nausea Verified 05/07/17 12:25 hydrocodone [From Vicodin] Allergy Nausea Verified 05/07/17 12:25 Oxycodone [From Percocet] Allergy Hives Verified 06/23/17 10:26 gabapentin [From Neurontin] AdvReac Confusion Verified 06/23/17 10:26 nitroglycerin AdvReac See Verified 06/23/17 10:25 Comments propoxyphene AdvReac Confusion Verified 06/23/17 10:26 [From Darvocet-N] All systems ED: reviewed and negative except as stated. Constitutional: Denies: fever, chills, weakness ENT ED: Denies: dysphagia Cardiovascular: Denies: chest pain Respiratory: Denies: dyspnea Gastrointestinal: Reports: abdominal pain, nausea, vomiting, diarrhea, constipation. Denies: hematemesis, melena, hematochezia Genitourinary: Denies: urgency, dysuria Musculoskeletal: Denies: back pain, neck pain Integumentary: Denies: rash Neurological: Denies: headache Past Medical History - Past Medical History Attestation: Yes The following information was validated with the patient. Source: patient, old records reviewed Medical history: Reports: arthritis, coronary artery disease, fibromyalgia, GERD , hyperlipidemia, hypertension Surgical history: Reports: appendectomy, cholecystectomy, hysterectomy Psychiatric history: Reports: anxiety, depression APARTMENT COORDINATOR history: Reports: no APARTMENT COORDINATOR history - Social History Smoking Status: Never smoker Smokeless Tobacco Status: No Alcohol use: Reports: none Drug use: Reports: none Physical Exam - General Limitations: no limitations General appearance: alert, in no apparent distress - Head Head exam: atraumatic, normocephalic, normal inspection - Eye Eye exam: Present: normal appearance, PERRL, EOMI - ENT ENT exam: normal exam, normal oropharynx, mucous membranes dry - Neck Neck exam: Present: normal inspection, full ROM, trachea midline - Chest Chest inspection: Present: normal inspection, symmetric chest wall rise - Respiratory Respiratory exam: Present: normal lung sounds bilaterally - Cardiovascular Cardiovascular exam: Present: regular rate, normal rhythm, normal heart sounds - Abdominal Exam Abdominal exam: Present: soft, tenderness (LLQ). Absent: distention, guarding, rebound, rigidity, Cody's sign, Rovsing's sign, tenderness at McBurney's Point , pulsatile mass, hernia - Extremities Exam Extremities exam: Present: normal inspection, full ROM. Absent: tenderness, pedal edema - Neurological Exam Neurological exam: Present: alert, oriented X3 - Skin Skin exam: Present: warm, dry, intact, normal color Course Vital Signs Temperature 97.6 F 12/08/17 21:10 Pulse Rate 93 12/08/17 21:10 Respiratory Rate 17 12/08/17 21:10 Blood Pressure 128/99 12/08/17 21:10 O2 Sat by Pulse Oximetry 95 12/08/17 21:10 Temperature 97.6 F 12/08/17 21:10 Pulse Rate 100 12/08/17 22:54 Respiratory Rate 19 12/08/17 22:54 Blood Pressure 157/98 12/08/17 22:54 O2 Sat by Pulse Oximetry 100 12/08/17 22:54 Oxygen Delivery Oxygen Delivery Room Air Medical Decision Making - MDM Narrative Medical decision making narrative: Patient's imaging or workup dentures no acute process. Despite 2 different nausea medications and multiple dosing, the patient remains nauseated and expressing dry heaving. Given the patient's symptoms, the patient was given IV fluids and will be admitted to the hospital for intractable nausea and vomiting. The patient was asked to have a urine. She was unable to do so and is refusing a catheter. The patient was made aware and agrees to plan. No further questions or concerns noted at this time. Patient was accepted by Dr. Mitchell. - Lab Data Lab results reviewed: Yes I reviewed the patient's lab results. Result diagrams: 12/08/17 22:34 12/08/17 22:34 Lab Results 12/08/17 12/08/17 12/08/17 Range/Units 21:22 21:22 22:34 WBC 8.6 (4.3-11.1) K/mcL RBC 4.97 (3.82-4.97) M/mcL Hgb 14.2 (11.5-15.4) g/dL Hct 42.0 (35.3-44.9) % MCV 84.5 (83.0-100.0) fL MCH 28.6 (28.0-33.3) pg MCHC 33.8 (31.6-35.5) g/dL RDW 13.3 (11.5-14.5) % Plt Count 254 (140-400) K/mcL MPV 10.1 (9.4-12.4) fL Immature Gran % 0.1 (0-4) % Seg Neutrophils % 79.3 % Lymphocytes % 16.7 % Monocytes % 3.0 % Eosinophils % 0.2 % Basophils % 0.7 % Neutrophils # 6.8 (1.6-8.9) K/mcL Lymphocytes # 1.4 (0.6-4.6) K/mcL Monocytes # 0.3 (0.0-1.3) K/mcL Eosinophils # 0.0 (0.0-0.6) K/mcL Basophils # 0.1 (0.0-0.2) K/mcL Sodium (136-145) mEq/L Potassium (3.5-5.1) mEq/L Chloride (98-107) mEq/L Carbon Dioxide (23-29) mEq/L BUN (8-23) mg/dL Creatinine (0.60-1.20) mg/dL Est GFR ( Amer) (> 60) Est GFR (Non-Af Amer) (> 60) BUN/Creatinine Ratio (6-26) Glucose (70-105) mg/dL Calculated Osmolality (280-300) Calcium (8.6-10.3) mg/dL Total Bilirubin (0.3-1.0) mg/dL AST (13-39) Units/L ALT (7-52) Units/L Alkaline Phosphatase (34-104) Units/L Serum Total Protein (6.4-8.9) g/dL Albumin (3.5-5.7) g/dL Globulin (2.4-3.5) g/dL Albumin/Globulin Ratio (1.1-2.2) Lipase (11-82) Units/L Specimen Rejected Clotted Hemolyzed 12/08/17 Range/Units 22:34 WBC (4.3-11.1) K/mcL RBC (3.82-4.97) M/mcL Hgb (11.5-15.4) g/dL Hct (35.3-44.9) % MCV (83.0-100.0) fL MCH (28.0-33.3) pg MCHC (31.6-35.5) g/dL RDW (11.5-14.5) % Plt Count (140-400) K/mcL MPV (9.4-12.4) fL Immature Gran % (0-4) % Seg Neutrophils % % Lymphocytes % % Monocytes % % Eosinophils % % Basophils % % Neutrophils # (1.6-8.9) K/mcL Lymphocytes # (0.6-4.6) K/mcL Monocytes # (0.0-1.3) K/mcL Eosinophils # (0.0-0.6) K/mcL Basophils # (0.0-0.2) K/mcL Sodium 134 L (136-145) mEq/L Potassium 3.9 (3.5-5.1) mEq/L Chloride 103 (98-107) mEq/L Carbon Dioxide 21 L (23-29) mEq/L BUN 17 (8-23) mg/dL Creatinine 0.78 (0.60-1.20) mg/dL Est GFR ( Amer) > 60 (> 60) Est GFR (Non-Af Amer) > 60 (> 60) BUN/Creatinine Ratio 22 (6-26) Glucose 148 H (70-105) mg/dL Calculated Osmolality 282 (280-300) Calcium 9.4 (8.6-10.3) mg/dL Total Bilirubin 0.7 (0.3-1.0) mg/dL AST 26 (13-39) Units/L ALT 23 (7-52) Units/L Alkaline Phosphatase 71 (34-104) Units/L Serum Total Protein 7.6 (6.4-8.9) g/dL Albumin 4.2 (3.5-5.7) g/dL Globulin 3.4 (2.4-3.5) g/dL Albumin/Globulin Ratio 1.2 (1.1-2.2) Lipase 20 (11-82) Units/L Specimen Rejected - Radiology Data Radiology results reviewed: Yes I reviewed the patient's radiology results. Abdomen/Pelvis CT 12/08/17 21:11 IMPRESSION: 1. No acute findings identified in the abdomen and pelvis. 2. Hiatal hernia. 3. Left renal lesion is incompletely characterized in this noncontrast exam. However the lesion appears grossly unchanged since comparison exam. D/ / 12/08/2017 22:25:11 Nam Mccann MD / jose antonio Interpreting Provider: Nam Mccann MD
[2017-12-08] MEDS ORDERED: Ondansetron 4 MG/2 ML VIAL ONE (21:35)
[2017-12-08] MEDS: Ondansetron 4 MG/2 ML VIAL IVP ONE ×2 (21:39→22:52)
[2017-12-08 22:43] LABS: Basophils # 0.1 K/mcL (0.0-0.2); Basophils % 0.7 %; Eosinophils % 0.2 %; Hemoglobin 14.2 g/dL (11.5-15.4); Immature Granulocytes % 0.1 % (0-4); Lymphocytes # 1.4 K/mcL (0.6-4.6); Lymphocytes % 16.7 %; Mean Corpuscular HGB Conc 33.8 g/dL (31.6-35.5); Mean Corpuscular Hemoglobin 28.6 pg (28.0-33.3); Mean Corpuscular Volume 84.5 fL (83.0-100.0); Mean Platelet Volume 10.1 fL (9.4-12.4); Monocytes # 0.3 K/mcL (0.0-1.3); Neutrophils # 6.8 K/mcL (1.6-8.9); Platelet Count 254 K/mcL (140-400); Red Blood Count 4.97 M/mcL (3.82-4.97); Red Cell Distribution Width 13.3 % (11.5-14.5); Segmented Neutrophils % 79.3 %
[2017-12-08] MEDS ORDERED: *HR* Promethazine 25 MG/ML VIAL IVP ONE (22:43)
[2017-12-08 23:03] LABS: Alanine Aminotransferase 23 Units/L (7-52); Albumin 4.2 g/dL (3.5-5.7); Albumin/Globulin Ratio 1.2 (1.1-2.2); Alkaline Phosphatase 71 Units/L (34-104); Aspartate Amino Transferase 26 Units/L (13-39); BUN/Creatinine Ratio 22 (6-26); Bilirubin,Total 0.7 mg/dL (0.3-1.0); Blood Urea Nitrogen 17 mg/dL (8-23); Calcium 9.4 mg/dL (8.6-10.3); Carbon Dioxide 21 mEq/L (23-29); Chloride 103 mEq/L (98-107); Globulin 3.4 g/dL (2.4-3.5); Glucose 148 mg/dL (70-105); Lipase 20 Units/L (11-82); Osmolality,Calculated 282 (280-300); Potassium 3.9 mEq/L (3.5-5.1); Sodium 134 mEq/L (136-145); Total Protein 7.6 g/dL (6.4-8.9); eGFR For Non-African Americans > 60 (> 60)
[2017-12-09] MEDS: 0.9 % Sodium Chloride 1,000 ML IVC SCH ×3 (00:58→18:46)
[2017-12-09] MEDS: *HR* Promethazine 25 MG/ML VIAL IVP PRN ×3 (01:43→18:46)
[2017-12-09 03:16] LABS: Bilirubin,Urine Negative (Negative); Blood,Urine Negative (Negative); Clarity,Urine Clear (Clear); Color,Urine Yellow (Yellow); Glucose,Urine (UA) Normal (Normal); Ketones,Urine 40 mg/dL (Negative); Leukocyte Esterase,Urine Small (Negative); Nitrite,Urine Positive (Negative); PH,Urine 7.5 pH Units (5.0-8.0); Protein,Urine Trace mg/dL (Neg-Trace); Specific Gravity,Urine 1.017 (1.010-1.025); Urobilinogen,Urine Normal (Normal)
[2017-12-09 03:18] LABS: Bacteria,Urine Many per hpf (None-Few); Hyaline Casts,Urine None Seen per lpf (None-Few); RBC,Urine 0-3 per hpf (0-3); Squamous Epithelial Cell,Urine Many per lpf (None-Few)
[2017-12-09] MEDS ORDERED: Naloxone 0.4 MG/ML INJ IVP PRN (06:16)
[2017-12-09] MEDS ORDERED: Ondansetron 4 MG/2 ML VIAL IVP PRN (06:16)
[2017-12-09] MEDS ORDERED: *HR* LORazepam 0.5 MG TABLET PO PRN (06:23)
--- NOTE | 2017-12-09 06:30 | Internal Med History&Physical ---
Date of Encounter: 12/09/17 Time of Encounter: 06:05 Internal Medicine - H&P: HPI Chief complaint: intractable nausea/vomiting Admitted From: Emergency Dept Plans for Post Hospital Care: Home History of present illness: Ms. Hernandez is a 77 year old female who [facility] with complaints of intractable nausea and vomiting. She suffers from chronic constipation, and she tried a bottle of magnesium citrate as advised by her PCP. She ingested roughly half the bottle as directed and was able to move her bowels and defecate thereafter. However, she later developed intractable nausea and vomiting and therefore came to the ER. She was seen in the ER and was assessed by the physicians. She also underwent CT scan which was negative for any acute pathology. In particular, there was no obstruction. She was given a couple different doses of antiemetics with little relief. She was therefore admitted to hospitalist service for protracted vomiting and dehydration. Upon my assessment of the patient this morning, she is still nauseous and vomited in front of me. She has mild abdominal cramping but no distention or pain. She denies any fevers, cough, congestion, chest pain, shortness of breath , or flank pain. She has some subtle dysuria. She denies any history of gastric or duodenal ulcers. She does have GERD which is well controlled with omeprazole. She denies any hematemesis or melena. Past Med Surg Social Fam HX - Past Medical History Attestation: Yes The following information was validated with the patient. Source: patient, old records reviewed Medical history: arthritis, coronary artery disease, fibromyalgia, GERD, hyperlipidemia, hypertension Additional medical history: DEPRESSION, ANXIETY,DIVERTICULITIS,POLIO Psychiatric history: anxiety, depression - Past Surgical History Surgical History: appendectomy, cholecystectomy, hysterectomy Additional surgical history: Colonoscopy. Heart catherization - Social History Smoking Status: Never smoker Smokeless Tobacco Status: No Alcohol use: none Drug use: none Current living situation: Home, With Family Activity Level: Independent ambulation Recent Out of Country Travel Within the Last 8 Weeks: No - Family History Father Family Member Ethnicity: Non- Living Status: Hx Family Cardiac Disorders: Yes (DC, Stroke) Hx Family GI Disorders: Yes (Partial removal of stomach) Brother Family Member Ethnicity: Non- Living Status: Hx Family Cancer: Yes (Neck) Mother Family Member Ethnicity: Non- Living Status: Hx Family Cardiac Disorders: Yes (DC) Internal Medicine - H&P: Meds Metoprolol XL (24 HR) Succ [Toprol Xl] 25 mg PO QAM 12/25/15 [History] Omeprazole [PriLOSEC] 20 mg PO QAM 12/25/15 [History] Pregabalin [Lyrica] 100 mg PO BID 12/25/15 [History] Simvastatin [Zocor] 40 mg PO QPM 12/25/15 [History] Venlafaxine [Effexor] 75 mg PO BID 12/25/15 [History] Ondansetron [Zofran] 8 mg PO Q8HR PRN #30 tablet 12/28/15 [Rx] LORazepam [Ativan] 0.5 mg PO BID PRN 05/07/17 [History] 3 Allergy/AdvReac Type Severity Reaction Status Date / Time acetaminophen [From Vicodin] Allergy Nausea Verified 05/07/17 12:25 hydrocodone [From Vicodin] Allergy Nausea Verified 05/07/17 12:25 Oxycodone [From Percocet] Allergy Hives Verified 06/23/17 10:26 gabapentin [From Neurontin] AdvReac Confusion Verified 06/23/17 10:26 nitroglycerin AdvReac See Verified 06/23/17 10:25 Comments propoxyphene AdvReac Confusion Verified 06/23/17 10:26 [From Darvocet-N] - Constitutional Constitutional: no chills, no fever(s) - EENT Eyes: no blurry vision, no change in vision Ears: no tinnitus Nose, mouth and throat: no nasal congestion, no sinus pressure, no sore throat - Cardiovascular Cardiovascular ROS IM: no chest pain, no dyspnea, no dyspnea on exertion - Respiratory Respiratory: no cough, no wheezing, no chest congestion, no excessive phlegm production - Gastrointestinal Gastrointestinal: constipation, cramping, nausea, vomiting, no hematemesis, no hematochezia, no melena - Genitourinary Genitourinary: no dysuria, no flank pain, no hematuria - Musculoskeletal Musculoskeletal ROS IM: no back pain, no muscle cramps - Integumentary Integumentary IM: no rash - Neurological Neurological ROS: no dizziness, no focal weakness, no frequent falls, no headache(s) - Psychiatric Psychiatric: no anxiety, no depression - Endocrine Endocrine IM: no polydipsia, no polyuria - Allergic/Immunologic Allergic/Immunologic: GI upset with certain foods - Constitutional Vitals: Temp Pulse Resp BP Pulse Ox 98.8 F 97 16 151/95 95 12/09/17 03:12 12/09/17 03:12 12/09/17 03:12 12/09/17 03:12 12/09/17 03:12 General appearance: Present: cooperative, mild distress, A&O X 3, pleasant, answers questions appropriately Exam: nauseated - Head Head exam: Present: normal inspection - Eye Eye exam: Present: EOMI, PERRL. Absent: scleral icterus Pupils: Present: normal accommodation - ENT ENT exam: Present: mucous membranes dry, normal exam, normal oropharynx - Neck Neck exam general surgery: Present: full ROM, supple. Absent: tenderness, nuchal rigidity, thyromegaly - Respiratory Respiratory exam: Present: CTAB. Absent: chest wall tenderness, rales, rhonchi , wheezes - Cardiovascular Cardiovascular exam: Present: RRR, +S1, +S2, tachycardia. Absent: systolic murmur - GI/Abdominal GI/Abdominal exam: Present: hypoactive bowel sounds, soft, tenderness (mild diffuse), no peritoneal signs. Absent: guarding, hepatomegaly, mass, rebound, splenomegaly - Extremities Exam Extremities exam: Present: full ROM, normal capillary refill, warm, radial pulses palpable and symmetrical. Absent: calf tenderness, joint swelling, tenderness - Back Exam Back exam: Absent: CVA tenderness (L), CVA tenderness (R) - Neurological Exam Neurological exam: Present: alert, oriented X3, no focal deficits - Psychiatric Psychiatric exam: Present: normal affect, normal mood - Skin Skin exam: Present: dry, intact, warm Internal Med - H&P Results - Labs CBC & Chem 7: 12/08/17 22:34 12/08/17 22:34 Labs: Urine 12/09/17 Range/Units 03:05 Urine Color Yellow (Yellow) Urine Clarity Clear (Clear) Urine pH 7.5 (5.0-8.0) pH Units Ur Specific [place] 1.017 (1.010-1.025) Urine Protein Trace (Neg-Trace) mg/dL Urine Glucose (UA) Normal (Normal) mg/dL - Diagnostic Studies CT scan - abdomen Additional comments: Report reviewed -- negative - Assessment and plan (1) Nausea & vomiting Current Visit: Yes Status: Acute Assessment and plan: 1. Will try alternating Zofran and Phenergan IV. 2. npo while nauseated. 3. Add IV PPI for acid suppression. Qualifiers: Vomiting type: unspecified Vomiting Intractability: intractable Qualified Code(s): R11.2 - Nausea with vomiting, unspecified (2) Dehydration Current Visit: Yes Status: Acute Assessment and plan: 1. IVF hydration. 2. Oral hydration as tolerated. (3) UTI (urinary tract infection) Current Visit: Yes Status: Suspected Assessment and plan: 1. Will order urine culture. 2. Start IV Rocephin daily and follow culture results. Qualifiers: Urinary tract infection type: acute cystitis Hematuria presence: without hematuria Qualified Code(s): N30.00 - Acute cystitis without hematuria (4) DVT prophylaxis Current Visit: Yes Status: Acute Assessment and plan: 1. Heparin SQ.
[2017-12-09] MEDS: 0.9 % Sodium Chloride w KCl 20 MEQ/1,000 ML MLS IVC SCH ×2 (07:30→18:46)
--- NOTE | 2017-12-09 08:08 | Event Note ---
Date of Encounter: 12/09/17 Time of Encounter: 08:15 See full H&P by my colleague from earlier today. Nausea, ongoing vomiting > 10 times since yesterday. Occasional dizziness. Exam revealed soft, ND, NT abdomen, no guarding or rebound,BS+ in all quadrants. CT abd/pelvis negative for acute pathoogy. # N/V/gastritis # Recent constipation, resolved - prn antiemetics - NPO for now, once n/v controlled, advance diet to clear and gradually further as tolerated - Cont IVF
[2017-12-09] MEDS: Metoprolol XL (24 HR) Succ 25 MG TAB.ER.24H PO SCH (10:29)
[2017-12-09] MEDS: Pregabalin 50 MG CAPSULE PO SCH ×2 (10:29→20:00)
[2017-12-09] MEDS: cefTRIAXone 1,000 MG in Water for inj. (sterile) 20 ML 10 ML IVP SCH (10:29)
[2017-12-09] MEDS: Pantoprazole 40 MG VIAL IVP SCH (18:45)
[2017-12-09] MEDS: *HR* Heparin 5,000 UNIT/ML VIAL SQ SCH (18:45)
[2017-12-09] MEDS ORDERED: Saline Nasal Spray 44 ML BOTTLE NS PRN (22:39)
[2017-12-10] MEDS: 0.9 % Sodium Chloride 1,000 ML IVC SCH ×2 (03:32→10:29)
[2017-12-10] MEDS: *HR* Heparin 5,000 UNIT/ML VIAL SQ SCH ×2 (05:52→17:31)
[2017-12-10] MEDS: Pantoprazole 40 MG VIAL IVP SCH ×2 (05:53→17:35)
[2017-12-10 06:17] LABS: Basophils # 0.1 K/mcL (0.0-0.2); Eosinophils # 0.2 K/mcL (0.0-0.6); Eosinophils % 3.6 %; Hematocrit 38.5 % (35.3-44.9); Hemoglobin 12.7 g/dL (11.5-15.4); Immature Granulocytes % 0.2 % (0-4); Lymphocytes # 1.7 K/mcL (0.6-4.6); Lymphocytes % 27.4 %; Mean Corpuscular Hemoglobin 28.5 pg (28.0-33.3); Mean Corpuscular Volume 86.5 fL (83.0-100.0); Mean Platelet Volume 10.3 fL (9.4-12.4); Monocytes # 0.5 K/mcL (0.0-1.3); Monocytes % 8.2 %; Neutrophils # 3.8 K/mcL (1.6-8.9); Platelet Count 224 K/mcL (140-400); Red Blood Count 4.45 M/mcL (3.82-4.97); Red Cell Distribution Width 13.7 % (11.5-14.5); Segmented Neutrophils % 59.6 %
[2017-12-10 06:38] LABS: Alanine Aminotransferase 23 Units/L (7-52); Albumin 3.8 g/dL (3.5-5.7); Albumin/Globulin Ratio 1.3 (1.1-2.2); Alkaline Phosphatase 60 Units/L (34-104); Aspartate Amino Transferase 36 Units/L (13-39); BUN/Creatinine Ratio 18 (6-26); Bilirubin,Total 0.8 mg/dL (0.3-1.0); Blood Urea Nitrogen 14 mg/dL (8-23); Calcium 8.3 mg/dL (8.6-10.3); Carbon Dioxide 20 mEq/L (23-29); Chloride 112 mEq/L (98-107); Globulin 2.9 g/dL (2.4-3.5); Glucose 83 mg/dL (70-105); Magnesium 2.5 mg/dL (1.6-2.6); Osmolality,Calculated 288 (280-300); Potassium 3.8 mEq/L (3.5-5.1); Sodium 139 mEq/L (136-145); Total Protein 6.7 g/dL (6.4-8.9); eGFR For Non-African Americans > 60 (> 60)
[2017-12-10] MEDS: cefTRIAXone 1,000 MG in Water for inj. (sterile) 20 ML 10 ML IVP SCH (10:28)
[2017-12-10] MEDS: Pregabalin 50 MG CAPSULE PO SCH ×2 (10:29→21:05)
[2017-12-10] MEDS: Metoprolol XL (24 HR) Succ 25 MG TAB.ER.24H PO SCH (10:29)
[2017-12-10] MEDS: *HR* Promethazine 25 MG/ML VIAL IVP PRN (14:52)
--- NOTE | 2017-12-10 15:40 | Internal Med Progress Note ---
Hospitalist Progress Note - Encounter Date of Encounter: 12/10/17 Time of Encounter: 14:45 - Subjective Interval History: Nausea and vomiting improved while NPO, tolerated small amount of clear liquids but when full liquid diet was tried, she started vomiting again this afternoon mild cough no chest pain, dyspnea, fever, abdominal pain reports small blister on right thigh, new 'bruise' under breast and in groin, for months - Exam Vitals: Temp Pulse Resp BP Pulse Ox 98.3 F 75 16 157/88 94 12/10/17 12:10 12/10/17 12:10 12/10/17 12:10 12/10/17 12:10 12/10/17 12:10 Exam: no distress awake, alert with bag in hand for vomiting moist oral mucosa, no icterus S1, S2, no MRG CTABL, no wheezes or rales soft, NT, ND, no guarding or rebound no ankle edema small 5 mm papule on anterior right thigh, no discharge, crusting hyperpigmentation bilateral submammary area without erythema, discharge, pain or pruritus alert, awake, oriented, no dysaarthria or focal deficits - Assessment and Plan (1) HTN (hypertension) Current Visit: No Status: Chronic (2) Acute urinary tract infection Current Visit: No Status: Acute (3) Nausea & vomiting Current Visit: Yes Status: Acute (4) Dehydration Current Visit: Yes Status: Acute - Summary of Assessment and Plan Summary of Assessment and Plan: 77W had a bottle of magnesium citrate for constipation followed by resolution of constipation but development of intractable nausea and vomiting, thus presented and admitted. CT abdomen negative for acute pathology or obstruction. # Intractable nausea /vomiting / possible gastritis, causing dehydration - suspect gastritis, could be from laxative but considering exanthem like eruption on thigh, wonder if this is viral gastritis - attempted to advance diet to full liquid on 12/10 but vomiting recurred - Cont prn antiemetics - Decrease IVF to maintenance, change from NS to LR - Cont PPI - CLD for now, may advance to FLD and then cardiac as tolerated # Recent constipation, resolved # GNR UTI - cont ceftriaxone - follow cultures # Mild CAD: - [facility] 06/2017 - Resume home ASA + statin # HTN: cont metoprolol # Bilateral submammary and groin brown pigmented macules in folds - no pruritus, discharge, erythema or pain - OP dermatology follow up # VTE prophy: heparin SubQ # Dispo; Discharge when able to tolerate oral food - Time Spent with Patient Total time spent is greater than 50% in coordination of care (as documented) at patient's floor/unit and/or counseling patient: Plan of Care Discussed with: patient Internal Medicine: Result - Labs CBC & Chem 7: 12/10/17 05:49 12/10/17 05:49 Labs: Short CBC 12/10/17 Range/Units 05:49 WBC 6.3 (4.3-11.1) K/mcL Hgb 12.7 D (11.5-15.4) g/dL Hct 38.5 (35.3-44.9) % Plt Count 224 (140-400) K/mcL Neutrophils # 3.8 (1.6-8.9) K/mcL BMP 12/10/17 05:49 Sodium 139 Potassium 3.8 Chloride 112 H Carbon Dioxide 20 L BUN 14 Creatinine 0.78 Glucose 83 Calcium 8.3 L Liver Function 12/10/17 Range/Units 05:49 Total Bilirubin 0.8 (0.3-1.0) mg/dL AST 36 (13-39) Units/L ALT 23 (7-52) Units/L Alkaline Phosphatase 60 (34-104) Units/L Albumin 3.8 (3.5-5.7) g/dL Consult Discharge Plan - Plan Referrals: Jaime Lynne DO [Primary Care Provider] - (1) HTN (hypertension) Qualifiers: Hypertension type: essential hypertension Qualified Code(s): I10 - Essential (primary) hypertension (3) Nausea & vomiting Qualifiers: Vomiting type: unspecified Vomiting Intractability: intractable Qualified Code(s): R11.2 - Nausea with vomiting, unspecified
[2017-12-10] MEDS: Ringers Solution, Lactated 1,000 ML IVC SCH (17:43)
[2017-12-11] MEDS: *HR* Heparin 5,000 UNIT/ML VIAL SQ SCH ×2 (06:02→18:14)
[2017-12-11] MEDS: Pantoprazole 40 MG VIAL IVP SCH ×2 (06:03→18:17)
[2017-12-11 06:24] LABS: BUN/Creatinine Ratio 16 (6-26); Blood Urea Nitrogen 12 mg/dL (8-23); Calcium 8.8 mg/dL (8.6-10.3); Carbon Dioxide 23 mEq/L (23-29); Chloride 105 mEq/L (98-107); Glucose 88 mg/dL (70-105); Osmolality,Calculated 281 (280-300); Potassium 3.6 mEq/L (3.5-5.1); Sodium 136 mEq/L (136-145); eGFR For Non-African Americans > 60 (> 60)
[2017-12-11] MEDS: Metoprolol XL (24 HR) Succ 25 MG TAB.ER.24H PO SCH (08:40)
[2017-12-11] MEDS: Pregabalin 50 MG CAPSULE PO SCH ×2 (08:40→20:20)
[2017-12-11] MEDS: Aspirin Enteric Coated 81 MG Tablet PO SCH (08:40)
[2017-12-11] MEDS: cefTRIAXone 1,000 MG in Water for inj. (sterile) 20 ML 10 ML IVP SCH (08:40)
[2017-12-11] MEDS: Ringers Solution, Lactated 1,000 ML IVC SCH (15:41)
--- NOTE | 2017-12-11 17:55 | Internal Med Progress Note ---
Hospitalist Progress Note - Encounter Date of Encounter: 12/11/17 Time of Encounter: 17:55 - Subjective Interval History: Pt denies fever, chills, N/V, CP , SOB or diarrhea. - Exam Vitals: Temp Pulse Resp BP Pulse Ox 98.3 F 97 19 144/97 96 12/11/17 14:47 12/11/17 14:47 12/11/17 14:47 12/11/17 14:47 12/11/17 14:47 Exam: no distress awake, alert with bag in hand for vomiting moist oral mucosa, no icterus S1, S2, no MRG CTABL, no wheezes or rales soft, NT, ND, no guarding or rebound no ankle edema small 5 mm papule on anterior right thigh, no discharge, crusting hyperpigmentation bilateral submammary area without erythema, discharge, pain or pruritus alert, awake, oriented, no dysaarthria or focal deficits - Assessment and Plan (1) Acute cystitis Current Visit: Yes Status: Acute Assessment and Plan: Due to Ecoli and is huntley sensitive. Will likely switch to Po antibiotic prior to discharge. (2) HTN (hypertension) Current Visit: No Status: Chronic Assessment and Plan: Continue on Metoprolol. (3) Intractable nausea and vomiting Current Visit: No Status: Resolved Assessment and Plan: Zofran prn. On Full Liquid diet and advanced to regular. IF pt tolerate regular diet, will likely DC in am on PO antibiotic or UTI (4) Dehydration Current Visit: Yes Status: Acute Assessment and Plan: DC fluids after today as pt is tolerating PO. (5) CAD (coronary artery disease) Current Visit: Yes Status: Acute Assessment and Plan: ASA and statin - Summary of Assessment and Plan Summary of Assessment and Plan: 77W had a bottle of magnesium citrate for constipation followed by resolution of constipation but development of intractable nausea and vomiting, thus presented and admitted. CT abdomen negative for acute pathology or obstruction. - Time Spent with Patient Total time spent is greater than 50% in coordination of care (as documented) at patient's floor/unit and/or counseling patient: less than 15 minutes Plan of Care Discussed with: patient Internal Medicine: Result - Labs CBC & Chem 7: 12/10/17 05:49 12/11/17 05:34 Labs: BMP 12/11/17 05:34 Sodium 136 Potassium 3.6 Chloride 105 Carbon Dioxide 23 BUN 12 Creatinine 0.74 Glucose 88 Calcium 8.8 Consult Discharge Plan - Plan Additional Instructions: Possible discharge in am Referrals: Jaime Lynne DO [Primary Care Provider] - 12/20/17 9:30 am (2) HTN (hypertension) Qualifiers: Hypertension type: essential hypertension Qualified Code(s): I10 - Essential (primary) hypertension (3) Intractable nausea and vomiting Qualifiers: Vomiting type: cyclical vomiting Qualified Code(s): G43.A1 - Cyclical vomiting, intractable
[2017-12-11] MEDS ORDERED: Ibuprofen 800 MG TABLET PO ONE (22:01)
[2017-12-12] MEDS: Pantoprazole 40 MG VIAL IVP SCH (05:14)
[2017-12-12] MEDS: *HR* Heparin 5,000 UNIT/ML VIAL SQ SCH (05:16)
[2017-12-12] MEDS: Pregabalin 50 MG CAPSULE PO SCH (08:09)
[2017-12-12] MEDS: cefTRIAXone 1,000 MG in Water for inj. (sterile) 20 ML 10 ML IVP SCH (08:10)
[2017-12-12] MEDS: Aspirin Enteric Coated 81 MG Tablet PO SCH (08:10)
[2017-12-12] MEDS: Metoprolol XL (24 HR) Succ 25 MG TAB.ER.24H PO SCH (08:10)
[2017-12-12 10:50] VITALS: BP 134/76
--- NOTE | 2017-12-12 13:18 | Discharge Summary ---
- NOTES TO OUTPATIENT PROVIDER Notes to Outpatient Provider: Intractable N/V- given IVF antiemetics- tolerating solid food- had UTI was given rocephin Date of Encounter: 12/12/17 Time of Encounter: 13:18 - Discharge Diagnosis (1) UTI (urinary tract infection) Priority: Secondary Status: Suspected Qualifiers: Urinary tract infection type: acute cystitis Hematuria presence: without hematuria Qualified Code(s): N30.00 - Acute cystitis without hematuria (2) Nausea & vomiting Priority: Primary Status: Acute Qualifiers: Vomiting type: unspecified Vomiting Intractability: intractable Qualified Code(s): R11.2 - Nausea with vomiting, unspecified (3) Dehydration Priority: Secondary Status: Acute Hospital course: Ms. Hernandez is a 77 year old female past medical hx of CAD fibromyalgis GERD HLD HTN She presented to the ED with intractable N/V. She suffers from chronic constipation and tried a bottle of magnesium citrate- she did move her bowels however she later developed intractable N/V . CT scan of abd negative for any acute pathology SHe was given antiemetics with little relief . She was given IVF , urinaysis did reveal UTI - culture did grow E coli - which was sensitive to Rocephin She received 3 days of Rocephin and she was eventually able to tolerate solid foods. No N/V She is hemodynamically stable and ready for discharge - Time Spent with Patient Total time spent providing and/or coordinating discharge services: - Discharge Medications Prescriptions: Ondansetron [Zofran] 8 mg PO Q8HR PRN #30 tablet PRN Reason: Nausea Home Medications: Metoprolol XL (24 HR) Succ [Toprol Xl] 25 mg PO QAM 12/25/15 [History] Omeprazole [PriLOSEC] 20 mg PO QAM 12/25/15 [History] Pregabalin [Lyrica] 100 mg PO BID 12/25/15 [History] Simvastatin [Zocor] 40 mg PO QPM 12/25/15 [History] Venlafaxine [Effexor] 75 mg PO BID 12/25/15 [History] LORazepam [Ativan] 0.5 mg PO BID PRN 05/07/17 [History] Aspirin [Adult Aspirin] 81 mg PO DAILY 12/09/17 [History] Ondansetron [Zofran] 8 mg PO Q8HR PRN #30 tablet 12/12/17 [Rx] Allergies/Adverse Reactions: 3 Allergy/AdvReac Type Severity Reaction Status Date / Time acetaminophen [From Vicodin] Allergy Nausea Verified 05/07/17 12:25 hydrocodone [From Vicodin] Allergy Nausea Verified 05/07/17 12:25 Oxycodone [From Percocet] Allergy Hives Verified 06/23/17 10:26 gabapentin [From Neurontin] AdvReac Confusion Verified 06/23/17 10:26 nitroglycerin AdvReac See Verified 06/23/17 10:25 Comments propoxyphene AdvReac Confusion Verified 06/23/17 10:26 [From Darvocet-N] Date of admission: 12/09/17 00:14 Primary care physician: Barry Lynne DO Discharging clinician: Clare Cavazos Anticipated date of discharge: 12/12/17 - Constitutional Vitals: Temp Pulse Resp BP Pulse Ox 98.4 F 83 15 134/76 95 12/12/17 10:48 12/12/17 10:48 12/12/17 10:48 12/12/17 10:48 12/12/17 10:48 General appearance: Present: cooperative, mild distress, A&O X 3, pleasant, answers questions appropriately Exam: see above - Eye Eye exam: Present: PERRL, conjuntiva pink, sclera anicteric Pupils: Present: PERRL - Neck Neck exam general surgery: Present: supple, trachea midline. Absent: lymphadenopathy - Respiratory Respiratory exam: Present: CTAB. Absent: accessory muscle use, rales, rhonchi, wheezes - Cardiovascular Cardiovascular exam: Present: RRR, +S1, +S2. Absent: diastolic murmur, gallop, rubs, systolic murmur - GI/Abdominal GI/Abdominal exam: Present: normal bowel sounds, soft, no peritoneal signs. Absent: distended, tenderness - Extremities Exam Extremities exam: Present: warm, radial pulses palpable and symmetrical. Absent : calf tenderness, cyanotic, pedal edema - Neurological Exam Neurological exam: Present: CN II-XII intact, oriented X3, no focal deficits. Absent: pronater drift, facial droop, speech deficit - Skin Skin exam: Present: dry, intact - Patient Status Disposition: Home, Self-Care Condition: Undetermined Functional capacity at discharge: independent ambulation Overall status at discharge: patient is back to baseline - Discharge Instructions Follow Up With: Jaime Lynne DO [Primary Care Provider] - 12/20/17 9:30 am Additional Instructions: Possible discharge in am - Diet and Activity Activity: increase activity as tolerated Diet: advance to your usual diet
== END 2017-12-12 15:35 | disposition home or self-care (01) ==
LOC: 3BNU 21:05 → EMEROOARM 21:05 → 3BNU 12-09 00:30
PROVIDERS: ADMIT Internal Medicine; ATTEND Internal Medicine

== ENCOUNTER 2019-01-04 08:15 | Observation (INO) ==
--- NOTE | 2019-01-04 08:44 | Emergency Department Note ---
Disposition Clinical Impression: Syncope and collapse Hypothyroid Qualifiers: Hypothyroidism type: unspecified Qualified Code(s): E03.9 - Hypothyroidism, unspecified Disposition: Admitted As Inpatient Condition: Fair Time of Disposition: 12:21 General Adult HPI - General Chief complaint: ED Fall Stated complaint: Syncope Time Seen by Provider: 01/04/19 08:19 Source: patient Limitations: no limitations Nursing Notes Reviewed: Yes Vital Signs Reviewed: Yes - History of Present Illness HPI Narrative: Syncope and fall This documentation is done with the assistance of Dragon dictation. Despite efforts made to ensure accuracy, there may be inaccuracies in senior front end engineer or spelling and typographical errors. Patient presents today after having what appears to be a syncopal episode versus a fall on her way to the bathroom she is uncertain whether she lost consciousness or not but sounds like she did when she tells her story. Denies any injuries. She denies a headache or neck pain. She states this has not happened before. . Past medical history reviewed in nurse's notes reviewed mid list reviewed allergies reviewed. Pain Scale: 0 - Related Data Home Medications Medication Instructions Recorded Confirmed Metoprolol XL (24 HR) Succ [Toprol 25 mg PO QAM 12/25/15 01/04/19 Xl] Omeprazole [PriLOSEC] 20 mg PO QAM 12/25/15 01/04/19 Pregabalin [Lyrica] 100 mg PO BID 12/25/15 01/04/19 Simvastatin [Zocor] 40 mg PO QPM 12/25/15 01/04/19 Venlafaxine [Effexor] 75 mg PO DAILY 12/25/15 01/04/19 LORazepam [Ativan] 0.5 mg PO BID PRN 05/07/17 01/04/19 Aspirin [Adult Aspirin] 81 mg PO DAILY 12/09/17 01/04/19 Allergies Allergy/AdvReac Type Severity Reaction Status Date / Time acetaminophen [From Vicodin] Allergy Nausea Verified 05/07/17 12:25 hydrocodone [From Vicodin] Allergy Nausea Verified 05/07/17 12:25 oxycodone [From Percocet] Allergy Hives Verified 06/23/17 10:26 gabapentin [From Neurontin] AdvReac Confusion Verified 06/23/17 10:26 nitroglycerin AdvReac See Verified 06/23/17 10:25 Comments propoxyphene AdvReac Confusion Verified 06/23/17 10:26 [From Michaela] Review of Systems: Dizzy prior to fall. Denies any complaints at this time. All systems ED: reviewed and negative except as stated. 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 GCS is [address] and time[address] Gen. appears in no acute distress HEENT, normocephalic, PERRL, EOMI, neck is supple, no signs of trauma, TMs and nares are negative. No dental trauma. Cardia vascular is regular rate and rhythm without rubs or JVD Lungs are clear to auscultation bilaterally with good aeration no chest wall tenderness Abdomen soft nonsurgical good bowel sounds no masses Pelvis is stable to rock and compression. No signs of obvious deformity. Extremities are present 4 with good distal pulses Refill is brisk no signs of obvious trauma. Neurologic cranial nerves II through XII are grossly intact. Upper and lower motor strength she is ambulatory. She is alert person place and time GCS 15 Dermatologic skin is warm and dry changes so she with age no signs of acute trauma. - General Limitations: no limitations General appearance: alert Course Vital Signs Temperature 97.5 F L 01/04/19 08:23 Pulse Rate 72 01/04/19 08:23 Respiratory Rate 20 01/04/19 08:23 Blood Pressure 125/69 01/04/19 08:23 O2 Sat by Pulse Oximetry 92 01/04/19 08:23 Temperature 97.7 F 01/04/19 12:17 Pulse Rate 68 01/04/19 12:17 Respiratory Rate 16 01/04/19 12:17 Blood Pressure 142/76 01/04/19 12:17 O2 Sat by Pulse Oximetry 93 01/04/19 12:17 Oxygen Delivery Oxygen Delivery Room Air Medical Decision Making - [facility] Narrative Medical decision making narrative: We will order a workup on her including CT labs EKG and then reassess. She is in agreement with this plan 0839 hrs.: Patient has sinus rhythm on her EKG with rate of 68 Ann Marie's is 94 QTC is 481 some flattening of T waves in the inferior leads and anterior leads compared this old EKG and shows no changes except for rate. No signs of ischemia or ectopy. 0917 hrs.: Patient's sons arrived they state she is asked she follow on about 8 months ago she is coming up some stairs and fell backwards did not get looked at then also had a fall when she was crossing to get her mail in a ditch. She says she is gets dizzy when this happens she states that she was dizzy before the event and then afterwards but now feels okay when she moves her head or turns her head she has noted issues where she goes to sit up she starts to feel lightheaded and dizzy. She has never had a workup for this before. Set may be a reason that we decided bring her into the hospital. Sons are in agreement wi th that plan as is she. Once we get everything back we will talk to her again and reassess. Chest X-Ray 01/04/19 09:07 IMPRESSION: Normal chest x-ray D/ / Jose William MD / Jose William MD Interpreting Provider: Jose William MD Head CT 01/04/19 10:07 IMPRESSION: 1. No acute intracranial abnormality. 2. Minimal global parenchymal volume loss with minimal chronic microvascular ischemic change. 3. Minimal scattered atherosclerosis of the intracranial vasculature. D/ / Aaron Crandall MD / Aaron Crandall MD Interpreting Provider: Aaron Crandall MD 1022 hrs.: Patient's agreement with admission. She has never had a history of having issues with her thyroid according her. She has not been sleeping more she is not have any weight gain no changes in appetite. So that can be investigated while she is here also. Impression syncopal episode with fall, hypothyroidism, patient's in agreement with this plan. Hospitalist is teresa. Patient states she has a mild headache and asked for some acetaminophen. She has allergy to hydrocodone and oxycodone but not acetaminophen. 1046 hrs.: Spoke with hospitalist they have agreed to admit the patient to the hospital. Patient's in agreement with this plan. - Lab Data Result diagrams: 01/04/19 08:50 01/04/19 08:50 Lab Results 01/04/19 01/04/19 01/04/19 Range/Units 08:50 08:50 11:28 WBC 8.1 (4.3-11.1) K/mcL RBC 4.92 (3.82-4.97) M/mcL Hgb 14.1 (11.5-15.4) g/dL Hct 43.1 (35.3-44.9) % MCV 87.6 (83.0-100.0) fL MCH 28.7 (28.0-33.3) pg MCHC 32.7 (31.6-35.5) g/dL RDW 13.2 (11.5-14.5) % Plt Count 222 (140-400) K/mcL MPV 10.4 (9.4-12.4) fL Immature Gran % 0.4 (0-4) % Seg Neutrophils % 68.0 % Lymphocytes % 20.6 % Monocytes % 8.4 % Eosinophils % 1.7 % Basophils % 0.9 % Neutrophils # 5.5 (1.6-8.9) K/mcL Lymphocytes # 1.7 (0.6-4.6) K/mcL Monocytes # 0.7 (0.0-1.3) K/mcL Eosinophils # 0.1 (0.0-0.6) K/mcL Basophils # 0.1 (0.0-0.2) K/mcL Sodium 131 L (136-145) mEq/L Potassium 3.9 (3.5-5.1) mEq/L Chloride 94 L (98-107) mEq/L Carbon Dioxide 26 (23-29) mEq/L BUN 16 (8-23) mg/dL Creatinine 0.90 (0.60-1.20) mg/dL Est GFR ( Amer) > 60 (> 60) Est GFR (Non-Af Amer) > 60 (> 60) BUN/Creatinine Ratio 18 (6-26) Glucose 145 H (70-105) mg/dL Calculated Osmolality 276 L (280-300) Calcium 9.0 (8.6-10.3) mg/dL Total Bilirubin 0.5 (0.3-1.0) mg/dL AST 18 (13-39) Units/L ALT 15 (7-52) Units/L Alkaline Phosphatase 75 (34-104) Units/L Troponin I < 0.03 (< 0.04) ng/mL Serum Total Protein 7.3 (6.4-8.9) g/dL Albumin 4.0 (3.5-5.7) g/dL Globulin 3.3 (2.4-3.5) g/dL Albumin/Globulin Ratio 1.2 (1.1-2.2) TSH 14.287 H (0.340-5.600) mcIU/mL Urine Color Yellow (Yellow) Urine Clarity Hazy A (Clear) Urine pH 6.0 (5.0-8.0) pH Units Ur Specific [place] 1.021 (1.010-1.025) Urine Protein 100 H (Neg-Trace) mg/dL Urine Glucose (UA) Normal (Normal) mg/dL Urine Ketones Negative (Negative) mg/dL Urine Blood Trace H (Negative) Urine Nitrite Positive A (Negative) Urine Bilirubin Negative (Negative) Urine Urobilinogen Normal (Normal) mg/dL Ur Leukocyte Esterase Moderate H (Negative) Urine Microscopic RBC 5-15 H (0-3) per hpf Urine Microscopic WBC TNTC H (0-3) per hpf Ur Squamous Epith Cells Many H (None-Few) per lpf Urine Bacteria Many H (None-Few) per hpf Hyaline Casts None Seen (None-Few) per lpf Ur Culture Indicated? YES A (NO)
[2019-01-04 09:11] LABS: Basophils # 0.1 K/mcL (0.0-0.2); Basophils % 0.9 %; Eosinophils # 0.1 K/mcL (0.0-0.6); Eosinophils % 1.7 %; Hematocrit 43.1 % (35.3-44.9); Hemoglobin 14.1 g/dL (11.5-15.4); Immature Granulocytes % 0.4 % (0-4); Lymphocytes # 1.7 K/mcL (0.6-4.6); Lymphocytes % 20.6 %; Mean Corpuscular HGB Conc 32.7 g/dL (31.6-35.5); Mean Corpuscular Hemoglobin 28.7 pg (28.0-33.3); Mean Corpuscular Volume 87.6 fL (83.0-100.0); Mean Platelet Volume 10.4 fL (9.4-12.4); Monocytes # 0.7 K/mcL (0.0-1.3); Monocytes % 8.4 %; Neutrophils # 5.5 K/mcL (1.6-8.9); Platelet Count 222 K/mcL (140-400); Red Blood Count 4.92 M/mcL (3.82-4.97); Red Cell Distribution Width 13.2 % (11.5-14.5); White Blood Count 8.1 K/mcL (4.3-11.1)
[2019-01-04 09:34] LABS: Alanine Aminotransferase 15 Units/L (7-52); Albumin/Globulin Ratio 1.2 (1.1-2.2); Alkaline Phosphatase 75 Units/L (34-104); Aspartate Amino Transferase 18 Units/L (13-39); BUN/Creatinine Ratio 18 (6-26); Bilirubin,Total 0.5 mg/dL (0.3-1.0); Blood Urea Nitrogen 16 mg/dL (8-23); Carbon Dioxide 26 mEq/L (23-29); Chloride 94 mEq/L (98-107); Globulin 3.3 g/dL (2.4-3.5); Glucose 145 mg/dL (70-105); Osmolality,Calculated 276 (280-300); Potassium 3.9 mEq/L (3.5-5.1); Sodium 131 mEq/L (136-145); Total Protein 7.3 g/dL (6.4-8.9); Troponin I < 0.03 ng/mL (< 0.04); eGFR For African Americans > 60 (> 60); eGFR For Non-African Americans > 60 (> 60)
[2019-01-04 09:46] LABS: Thyroid Stimulating Hormone 14.287 mcIU/mL (0.340-5.600)
[2019-01-04] MEDS ORDERED: Acetaminophen 325 MG TABLET PO ONE (10:37)
[2019-01-04 11:42] LABS: Bilirubin,Urine Negative (Negative); Blood,Urine Trace (Negative); Color,Urine Yellow (Yellow); Glucose,Urine (UA) Normal (Normal); Ketones,Urine Negative (Negative); Leukocyte Esterase,Urine Moderate (Negative); Nitrite,Urine Positive (Negative); Protein,Urine 100 mg/dL (Neg-Trace); Specific Gravity,Urine 1.021 (1.010-1.025); Urobilinogen,Urine Normal (Normal)
[2019-01-04 11:45] LABS: Bacteria,Urine Many per hpf (None-Few); Hyaline Casts,Urine None Seen per lpf (None-Few); Squamous Epithelial Cell,Urine Many per lpf (None-Few); WBC,Urine TNTC per hpf (0-3)
[2019-01-04 11:47] LABS: Clarity,Urine Hazy (Clear)
[2019-01-04] MEDS ORDERED: *HR* LORazepam 0.5 MG TABLET PO PRN (11:49)
--- NOTE | 2019-01-04 12:03 | Internal Med History&Physical ---
Date of Encounter: 01/04/19 Time of Encounter: 11:58 Internal Medicine - H&P: HPI Chief complaint: syncope Admitted From: Home Plans for Post Hospital Care: Home History of present illness: Ms. Hernandez is a 78 year old female past medical history of fibromyalgia, hypertension hyperlipidemia questionable mitral valve prolapse, came in with complaint of syncopal episode with collapse and with short spell loss of consciousness . Patient mentioned she stood up from bed to go to bathroom where she felt dizzy and blacked out and collapsed on the floor. She fell she was out for less than a minute. She regained consciousness and called her son to bring her to the hospital. She had previous history of falls and on and off dizziness associated with fatigue and weakness. She denies any chest pain, palpitation, abdominal pain, nausea vomiting or diarrhea. She reports that she feels she might have UTI which some increase frequency at night however denies any abdominal pain or fevers chills or dysuria. She reported that she was evaluated to see if she had irregular heart rate with A. fib however it was ruled out. Denies any pain anywhere. She does have history of slight weakness in her lower extremity from childhood polio but is able to walk without any support. Denies tripping on anything. Patient has a history of fall about 8 months ago however she did not come to the hospital during that time. Patient had workup done in ER which showed sodium of 131 and TSH of 14.2. Urinalysis pending. Patient had normal chest x-ray and no significant abnormality on head CT. Patient feeling slightly better but still feeling tired and has dry mouth. Past Med Surg Social Fam HX - Past Medical History Medical history: fibromyalgia, GERD, hyperlipidemia, hypertension Additional medical history: DEPRESSION, ANXIETY,DIVERTICULITIS,POLIO Psychiatric history: anxiety, depression - Past Surgical History Surgical History: appendectomy, cholecystectomy, hysterectomy Additional surgical history: Colonoscopy. Heart catherization - Social History Smoking Status: Never smoker Smokeless Tobacco Status: No Alcohol use: none Drug use: none - Family History Father Family Member Ethnicity: Non- Living Status: Hx Family Cardiac Disorders: Yes (IA, Stroke) Hx Family GI Disorders: Yes (Partial removal of stomach) Brother Family Member Ethnicity: Non- Living Status: Hx Family Cancer: Yes (Neck) Mother Family Member Ethnicity: Non- Living Status: Hx Family Cardiac Disorders: Yes (IA) Internal Medicine - H&P: Meds Metoprolol XL (24 HR) Succ [Toprol Xl] 25 mg PO QAM 12/25/15 [History] Omeprazole [PriLOSEC] 20 mg PO QAM 12/25/15 [History] Pregabalin [Lyrica] 100 mg PO BID 12/25/15 [History] Simvastatin [Zocor] 40 mg PO QPM 12/25/15 [History] Venlafaxine [Effexor] 75 mg PO DAILY 12/25/15 [History] LORazepam [Ativan] 0.5 mg PO BID PRN 05/07/17 [History] Aspirin [Adult Aspirin] 81 mg PO DAILY 12/09/17 [History] Allergy/AdvReac Type Severity Reaction Status Date / Time acetaminophen [From Vicodin] Allergy Nausea Verified 05/07/17 12:25 hydrocodone [From Vicodin] Allergy Nausea Verified 05/07/17 12:25 oxycodone [From Percocet] Allergy Hives Verified 06/23/17 10:26 gabapentin [From Neurontin] AdvReac Confusion Verified 06/23/17 10:26 nitroglycerin AdvReac See Verified 06/23/17 10:25 Comments propoxyphene AdvReac Confusion Verified 06/23/17 10:26 [From Darvocet-N] All Systems PM: A 10-system review of systems was performed and is negative for pertinent findings except as documented above in the HPI. - Constitutional Vitals: Temp Pulse Resp BP Pulse Ox 97.5 F L 77 16 142/71 93 01/04/19 08:23 01/04/19 11:03 01/04/19 11:03 01/04/19 11:03 01/04/19 11:03 Exam: Constitutional: Vitals as noted. Conversant. No Apparent Distress. Eyes : Sclera white, conjunctiva clear, no lid lag, PEARLA. ENT : Grossly normal hearing. dry mucus membranes. Respiratory : Clear to auscultation bilaterally. No accessory muscle use, rales, rhonchi or wheezes Cardiovascular : RRR, +S1, +S2. no murmur, gallop, rubs. No chest wall tenderness GI/Abdominal : Soft, Non-tender, Non-distended, normal bowel sounds, no peritoneal signs. no orgenomegaly or mass appreciated. no hernia. Musculoskeletal: no deformity noted. no edema, warm extremities, pulses palpable and symmetrical in UE/LE. no calf tenderness. Neurological: AO X3, CN II-XII grossly intact, grossly normal motor and sensory exam. Skin: No skin rash, lesions or ulcers noted. Pych: Good insight and judgement. Intact memory. AOx3. Internal Med - H&P Results - Labs CBC & Chem 7: 01/04/19 08:50 01/04/19 08:50 Labs: Short CBC 01/04/19 Range/Units 08:50 WBC 8.1 (4.3-11.1) K/mcL Hgb 14.1 (11.5-15.4) g/dL Hct 43.1 (35.3-44.9) % Plt Count 222 (140-400) K/mcL Neutrophils # 5.5 (1.6-8.9) K/mcL BMP 01/04/19 08:50 Sodium 131 L Potassium 3.9 Chloride 94 L Carbon Dioxide 26 BUN 16 Creatinine 0.90 Glucose 145 H Calcium 9.0 Cardiac Enzymes 01/04/19 Range/Units 08:50 Troponin I < 0.03 (< 0.04) ng/mL Liver Function 01/04/19 Range/Units 08:50 Total Bilirubin 0.5 (0.3-1.0) mg/dL AST 18 (13-39) Units/L ALT 15 (7-52) Units/L Alkaline Phosphatase 75 (34-104) Units/L Albumin 4.0 (3.5-5.7) g/dL Urine 01/04/19 Range/Units 11:28 Urine Color Yellow (Yellow) Urine Clarity Hazy A (Clear) Urine pH 6.0 (5.0-8.0) pH Units Ur Specific [place] 1.021 (1.010-1.025) Urine Protein 100 H (Neg-Trace) mg/dL Urine Glucose (UA) Normal (Normal) mg/dL - EKG Data -: EKG Interpreted by Myself EKG shows normal: sinus rhythm - Impressions ITS Impressions Chest X-Ray 01/04/19 09:07 IMPRESSION: Normal chest x-ray D/ / Jose William MD / Jose William MD Interpreting Provider: Jose William MD Head CT 01/04/19 10:07 IMPRESSION: 1. No acute intracranial abnormality. 2. Minimal global parenchymal volume loss with minimal chronic microvascular ischemic change. 3. Minimal scattered atherosclerosis of the intracranial vasculature. D/ / Aaron Crandall MD / Aaron Crandall MD Interpreting Provider: Aaron Crandall MD - Assessment and Plan (1) Syncope and collapse Current Visit: Yes Status: Acute Assessment and plan: Patient did have a syncopal episode. Likely orthostatic hypotension versus vasovagal in combination with dehydration given patient with some sites of UTI and hyponatremia. Patient's blood pressure stable in ER. We will obtain orthostatic vitals. There is reported history of orthostatic hypotension in the past. EKG without acute ischemic changes. Head CT unremarkable. Patient currently without any focal deficits. We will repeat a carotid ultrasound and echocardiogram and monitor patient on telemetry. However earlier last year both were unremarkable and there were no signs of mitral prolapse. Patient had LHC on's 06/23/17 which showed only mild coronary artery disease with EF of 60%. At this point appears more likely related to orthostasis with some dehydration as well as hypothyroidism. (2) DVT prophylaxis Current Visit: No Status: Acute Assessment and plan: EPCD (3) Dehydration Current Visit: No Status: Acute Assessment and plan: Denies any decreased oral intake however has some signs of dehydration with hyponatremia and possible UTI We will keep patient on gentle IV fluids for 1 L. (4) Orthostatic hypotension Current Visit: No Status: Acute Assessment and plan: Likely underlying cause of her syncope along with hypothyroidism and dehydration We will obtain orthostatic vitals Discussed lifestyle changes with the patient. (5) Fibromyalgia Current Visit: No Status: Chronic Assessment and plan: Continue home medication once confirmed (6) GERD (gastroesophageal reflux disease) Current Visit: No Status: Chronic Assessment and plan: Continue home medication once confirmed Qualifiers: Esophagitis presence: esophagitis presence not specified Qualified Code(s): K21.9 - Gastro-esophageal reflux disease without esophagitis (7) HLD (hyperlipidemia) Current Visit: No Status: Chronic Assessment and plan: Continue home medication once confirmed Qualifiers: Hyperlipidemia type: pure hypercholesterolemia Qualified Code(s): E78.00 - Pure hypercholesterolemia, unspecified; E78.0 - Pure hypercholesterolemia (8) HTN (hypertension) Current Visit: No Status: Chronic Assessment and plan: Continue home medication once confirmed Qualifiers: Hypertension type: essential hypertension Qualified Code(s): I10 - Essential (primary) hypertension (9) UTI (urinary tract infection) Current Visit: No Status: Suspected Assessment and plan: Patient has abnormal UA with signs of UTI as well as some increased frequency given her presentation and we will treat with 3 days of antibiotic. Follow-up urine culture Qualifiers: Urinary tract infection type: acute cystitis Hematuria presence: without hematuria Qualified Code(s): N30.00 - Acute cystitis without hematuria (10) Hypothyroid Current Visit: Yes Status: Acute Assessment and plan: Patient with signs of hypothyroidism with elevated TSH We will start patient on thyroid replacement at low dose given her age. Qualifiers: Hypothyroidism type: unspecified Qualified Code(s): E03.9 - Hypothyroidism, unspecified - Time Spent With Patient Total time spent is greater than 50% in coordination of care (as documented) at patient's floor/unit and/or counseling patient:
[2019-01-04] MEDS ORDERED: 0.9 % Sodium Chloride 1,000 ML IVC SCH (12:15)
[2019-01-04] MEDS: cefTRIAXone 1,000 MG in Water for inj. (sterile) 10 ML IVP SCH (13:35)
[2019-01-04] MEDS: Levothyroxine Sodium 100 MCG VIAL IVP SCH (13:45)
[2019-01-04] MEDS ORDERED: Acetaminophen 325 MG TABLET PO PRN (21:14)
[2019-01-04] MEDS: Pregabalin 50 MG CAPSULE PO SCH (22:11)
--- NOTE | 2019-01-05 06:44 | Electrocardiograph Report ---
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
[2019-01-05] MEDS ORDERED: 0.9 % Sodium Chloride 500 ML ONE (08:39)
[2019-01-05] MEDS: Levothyroxine Sodium 100 MCG VIAL IVP SCH (08:45)
[2019-01-05] MEDS: cefTRIAXone 1,000 MG in Water for inj. (sterile) 10 ML IVP SCH (08:45)
[2019-01-05] MEDS ORDERED: 0.9 % Sodium Chloride 1,000 ML IVC SCH (08:45)
[2019-01-05] MEDS: Pregabalin 50 MG CAPSULE PO SCH (08:51)
[2019-01-05] MEDS ORDERED: Metoprolol XL (24 HR) Succ 25 MG TAB.ER.24H PO SCH (09:00)
[2019-01-05] MEDS ORDERED: Aspirin Enteric Coated 81 MG Tablet PO SCH (09:00)
[2019-01-05 09:57] LABS: BUN/Creatinine Ratio 15 (6-26); Blood Urea Nitrogen 13 mg/dL (8-23); Calcium 8.6 mg/dL (8.6-10.3); Carbon Dioxide 26 mEq/L (23-29); Chloride 99 mEq/L (98-107); Glucose 125 mg/dL (70-105); Osmolality,Calculated 278 (280-300); Potassium 4.1 mEq/L (3.5-5.1); Sodium 133 mEq/L (136-145); eGFR For African Americans > 60 (> 60); eGFR For Non-African Americans > 60 (> 60)
[2019-01-05 12:31] VITALS: BP 160/83
--- NOTE | 2019-01-05 14:27 | Discharge Summary ---
- NOTES TO OUTPATIENT PROVIDER Notes to Outpatient Provider: Came with syncope, orthostatics positive. GIven IV fludis. Ordered home PT/OT. UTI, augmentin given for total of days. Had high TSH, started on levothyroxine Orders not resulted at time of discharge: Pending orders 01/04/19 11:28 Culture,Urine [RM] Stat Date of Encounter: 01/05/19 Time of Encounter: 08:15 - Discharge Diagnosis (1) Syncope and collapse Priority: Primary Status: Acute (2) DVT prophylaxis Priority: Secondary Status: Acute (3) Dehydration Priority: Secondary Status: Acute (4) Orthostatic hypotension Priority: Secondary Status: Acute (5) Fibromyalgia Priority: Secondary Status: Chronic (6) GERD (gastroesophageal reflux disease) Priority: Secondary Status: Chronic Qualifiers: Esophagitis presence: esophagitis presence not specified Qualified Code(s): K21.9 - Gastro-esophageal reflux disease without esophagitis (7) HLD (hyperlipidemia) Priority: Secondary Status: Chronic Qualifiers: Hyperlipidemia type: pure hypercholesterolemia Qualified Code(s): E78.00 - Pure hypercholesterolemia, unspecified; E78.0 - Pure hypercholesterolemia (8) HTN (hypertension) Priority: Secondary Status: Chronic Qualifiers: Hypertension type: essential hypertension Qualified Code(s): I10 - Essential (primary) hypertension (9) UTI (urinary tract infection) Priority: Secondary Status: Suspected Qualifiers: Urinary tract infection type: acute cystitis Hematuria presence: without hematuria Qualified Code(s): N30.00 - Acute cystitis without hematuria (10) Hypothyroid Priority: Secondary Status: Acute Qualifiers: Hypothyroidism type: unspecified Qualified Code(s): E03.9 - Hypothyroidism, unspecified Hospital course: Ms. Hernandez is a 78 year old female past medical history of fibromyalgia, hypertension hyperlipidemia questionable mitral valve prolapse, came in with complaint of syncopal episode with collapse and with short spell loss of consciousness. Patient was found to be orthostatic positive. Likely etiology seems to be dehydration. Another contributing factor could be UTI. Was given IV fluids. She felt better after the IV fluids. Advised the patient to keep herself well-hydrated with total fluids. Regarding her UTI, she was started on ceftriaxone. Will be discharged on Augmentin for 4 more days. Echocardiogram was ordered for the workup of syncope which showed normal ejection fraction without any wall motion abnormalities. Telemetry did not reveal any cardiac arrhythmias and the history does not correlate with any cardiac arrhythmias either. She also had carotid Dopplers done which did not show any stenotic plaques. Lab work also showed TSH of 14. Started on levothyroxine. We will discharge on levothyroxine 25mcg eveyday. Outpatient follow-up with the PCP recommended. Discussed with the patient regarding the discharge plan. Medication will be sent to the pharmacy. We will also order home PT/OT. - Time Spent with Patient Total time spent providing and/or coordinating discharge services: 25 minutes - Discharge Medications Prescriptions: New Amoxicillin/Clavulanate [Augmentin] 875 mg PO BIDWM 4 Days #8 tablet Levothyroxine [Synthroid] 25 mcg PO 0630 #30 tablet Continued Omeprazole [PriLOSEC] 20 mg PO QAM Venlafaxine [Effexor] 75 mg PO DAILY Simvastatin [Zocor] 40 mg PO QPM Pregabalin [Lyrica] 100 mg PO BID Metoprolol XL (24 HR) Succ [Toprol Xl] 25 mg PO QAM LORazepam [Ativan] 0.5 mg PO DAILY PRN PRN Reason: Anxiety Aspirin [Adult Aspirin] 81 mg PO DAILY Home Medications: Metoprolol XL (24 HR) Succ [Toprol Xl] 25 mg PO QAM 12/25/15 [History] Omeprazole [PriLOSEC] 20 mg PO QAM 12/25/15 [History] Pregabalin [Lyrica] 100 mg PO BID 12/25/15 [History] Simvastatin [Zocor] 40 mg PO QPM 12/25/15 [History] Venlafaxine [Effexor] 75 mg PO DAILY 12/25/15 [History] LORazepam [Ativan] 0.5 mg PO DAILY PRN 05/07/17 [History] Aspirin [Adult Aspirin] 81 mg PO DAILY 12/09/17 [History] Amoxicillin/Clavulanate [Augmentin] 875 mg PO BIDWM 4 Days #8 tablet 01/05/19 [Rx] Levothyroxine [Synthroid] 25 mcg PO 0630 #30 tablet 01/05/19 [Rx] Allergies/Adverse Reactions: Allergy/AdvReac Type Severity Reaction Status Date / Time oxycodone [From Percocet] Allergy Hives Verified 01/05/19 10:26 acetaminophen [From Vicodin] AdvReac Nausea Verified 01/05/19 10:26 gabapentin [From Neurontin] AdvReac Confusion Verified 01/05/19 10:26 hydrocodone [From Vicodin] AdvReac Nausea Verified 01/05/19 10:26 nitroglycerin AdvReac See Verified 01/05/19 10:26 Comments propoxyphene AdvReac Confusion Verified 01/05/19 10:26 [From Darvocet-N] Date of admission: 01/04/19 11:47 Primary care physician: Barry Lynne DO Consults: 01/04/19 12:14 Consult to Occupational Therapy [CONS] Routine Comment: Evaluate, develop and implement POC Reason for Consult: dizziness, fall, improve mobility, discharge planning Does patient have active BEDREST order?: No Is patient medically & hemodynamically stable?: Yes Consult to Physical Therapy [CONS] Routine Comment: Evaluate, develop and implement POC Reason for Consult: dizziness, fall, improve mobility, discharge planning Does patient have active BEDREST order?: No Is patient medically & hemodynamically stable?: Yes - Constitutional Vitals: Temp Pulse Resp BP Pulse Ox 97.9 F 85 15 160/83 93 01/05/19 12:30 01/05/19 12:30 01/05/19 12:30 01/05/19 12:30 01/05/19 12:30 Exam: General: Alert and oriented, no physical distress, able to follow commands. HEENT: No thyromegaly, no lymphadenopathy, no discharge. Eyes: No discharge. Normal conjuctiva, no icterus Respiratory: Normal vesicular breathing, no added sounds, breathing equal in b oth sides. CVS: Normal heart sounds, no murmurs, regular rhthm, no edema Extremities: No peripheral edema, peripheral pulses intact. Lymph nodes: No lymphadenopathy Gastrointestinal: Soft, nontender abdomen, normal abdominal sounds. No distention noted. Genitourinary: No paravertebral tenderness. Skin: No rash, ulcers or wound. Neurological: Alert and oriented. No focal deficits. Cranial nerves II-XII intact. - Patient Status Disposition: Home Health Service Condition: Good - Discharge Instructions Follow Up With: Jaime Lynne DO [Primary Care Provider] - Additional Instructions: Drink 1500-2000ml of fluids per day. - Diet and Activity Activity: increase activity as tolerated Diet: advance to your usual diet - VTE Documentation of Mechanical Device: Intermittent pneumatic compression device
--- NOTE | 2019-01-05 14:40 | Physician Discharge Referral ---
Home Health/Hosp Referral Info Transfer to: Home Health Provider in Charge Post Discharge: PCP - Diagnosis (1) Syncope and collapse Priority: Primary Status: Acute (2) DVT prophylaxis Priority: Secondary Status: Acute (3) Dehydration Priority: Secondary Status: Acute (4) Orthostatic hypotension Priority: Secondary Status: Acute (5) Fibromyalgia Priority: Secondary Status: Chronic (6) GERD (gastroesophageal reflux disease) Priority: Secondary Status: Chronic (7) HLD (hyperlipidemia) Priority: Secondary Status: Chronic (8) HTN (hypertension) Priority: Secondary Status: Chronic (9) UTI (urinary tract infection) Priority: Secondary Status: Suspected (10) Hypothyroid Priority: Secondary Status: Acute - Respiratory Orders Smoking Cessation: Smoking cessation has been advised. For more information, call the [place] Tobacco Quit Line at 4-964-HHBS-NOW. - Services Needed Following services are medically necessary services: Physical Therapy, Occupational Therapy - Transfer Medications Prescriptions: Amoxicillin/Clavulanate [Augmentin] 875 mg PO BIDWM 4 Days #8 tablet Transmission Status: Pending to [facility] #[id number] Levothyroxine [Synthroid] 25 mcg PO 0630 #30 tablet Transmission Status: Pending to [facility] #[id number] Home Medications: Metoprolol XL (24 HR) Succ [Toprol Xl] 25 mg PO QAM 12/25/15 [History] Omeprazole [PriLOSEC] 20 mg PO QAM 12/25/15 [History] Pregabalin [Lyrica] 100 mg PO BID 12/25/15 [History] Simvastatin [Zocor] 40 mg PO QPM 12/25/15 [History] Venlafaxine [Effexor] 75 mg PO DAILY 12/25/15 [History] LORazepam [Ativan] 0.5 mg PO DAILY PRN 05/07/17 [History] Aspirin [Adult Aspirin] 81 mg PO DAILY 12/09/17 [History] Amoxicillin/Clavulanate [Augmentin] 875 mg PO BIDWM 4 Days #8 tablet 01/05/19 [Rx] Levothyroxine [Synthroid] 25 mcg PO 0630 #30 tablet 01/05/19 [Rx] Allergies/Adverse Reactions: Allergy/AdvReac Type Severity Reaction Status Date / Time oxycodone [From Percocet] Allergy Hives Verified 01/05/19 10:26 acetaminophen [From Vicodin] AdvReac Nausea Verified 01/05/19 10:26 gabapentin [From Neurontin] AdvReac Confusion Verified 01/05/19 10:26 hydrocodone [From Vicodin] AdvReac Nausea Verified 01/05/19 10:26 nitroglycerin AdvReac See Verified 01/05/19 10:26 Comments propoxyphene AdvReac Confusion Verified 01/05/19 10:26 [From Darvocet-N] Certification: Further, I certify that my clinical findings support that this patient is homebound (i.e. absences from home require considerable and taxing effort and are for medical reasons or advent services or infrequently or short duration when for other reasons) because: Homebound Reason: Patient requires assistance of a person or device to safely leave home Attestation: My signature below is to certify that this patient is under my care and that I, or nurse practitioner, or a physician's first assistant working with me, has a [id number] encounter with this patient.
--- NOTE | 2019-01-08 08:45 | Electrocardiograph Report ---
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 Electronically Signed On 01-08-2019 8:43:42 EDT by Jose Luis Lange
== END 2019-01-05 15:38 | disposition home health service (06) ==
LOC: EMEROOARM 08:15 → 3BNU 08:15
PROVIDERS: ADMIT Internal Medicine; ATTEND Internal Medicine